=== PATIENT | female | born 1930 | race Caucasian/White ===

== ENCOUNTER 2018-11-16 13:42 | Inpatient (IN) ==
[2018-11-16] MEDS ORDERED: Acetaminophen 325 MG TABLET PO PRN (23:10)
[2018-11-16] MEDS ORDERED: cloNIDine HCl 0.1 MG TABLET PO PRN (23:13)
[2018-11-16] MEDS ORDERED: Melatonin 3 MG TABLET PO PRN (23:16)
[2018-11-16] MEDS ORDERED: *HR* HYDROcodone/Acet 5/325 mg TABLET PO PRN (23:18)
[2018-11-17] MEDS: Ondansetron ODT 4 MG TAB.RAPDIS SL PRN ×3 (03:58→16:55)
[2018-11-17 05:26] LABS: Basophils % 0.1 %; Eosinophils % 0.2 %; Hematocrit 23.5 % (35.3-44.9); Hemoglobin 7.8 g/dL (11.5-15.4); Immature Granulocytes % 0.6 % (0-4); Lymphocytes # 1.3 K/mcL (0.6-4.6); Lymphocytes % 9.8 %; Mean Corpuscular HGB Conc 33.2 g/dL (31.6-35.5); Mean Corpuscular Hemoglobin 27.6 pg (28.0-33.3); Mean Platelet Volume 10.5 fL (9.4-12.4); Monocytes # 1.4 K/mcL (0.0-1.3); Monocytes % 10.2 %; Neutrophils # 10.7 K/mcL (1.6-8.9); Platelet Count 239 K/mcL (140-400); Red Blood Count 2.83 M/mcL (3.82-4.97); Red Cell Distribution Width 14.6 % (11.5-14.5); Segmented Neutrophils % 79.1 %; White Blood Count 13.5 K/mcL (4.3-11.1)
[2018-11-17 05:42] LABS: Bilirubin,Total 0.7 mg/dL (0.3-1.0); Calcium 8.1 mg/dL (8.6-10.3); Potassium 4.6 mEq/L (3.5-5.1)
[2018-11-17] MEDS: Levothyroxine 25 MCG TABLET PO SCH (06:34)
[2018-11-17] MEDS: Insulin LISPRO 300 UNITS/3 ML VIAL SQ SCH ×3 (07:40→16:49)
[2018-11-17] MEDS: Loratadine 10 MG TABLET PO SCH (08:22)
[2018-11-17] MEDS: *HR* Glimepiride 4 MG TABLET PO SCH (08:22)
[2018-11-17] MEDS: Aspirin Enteric Coated 325 MG Tablet PO SCH (08:22)
[2018-11-17] MEDS: Metoprolol XL (24 HR) Succ 50 MG TAB.ER.24H PO SCH (08:22)
[2018-11-17] MEDS ORDERED: Lisinopril 20 MG TABLET PO SCH (09:00)
[2018-11-17] MEDS: Mag Hydrox/Al Hydrox/Simeth 30 ML UDC PO PRN ×2 (09:49→16:55)
[2018-11-17] MEDS ORDERED: *HR* HYDROcodone/Acet 5/325 mg TABLET PO PRN ×2 (09:59→10:00)
--- NOTE | 2018-11-17 10:00 | Internal Med History&Physical ---
Date of Encounter: 11/17/18 Time of Encounter: 09:55 Assessment and Plan (1) Closed left hip fracture Current visit: Yes Status: Acute Patient is an admission from [facility] where she was surgically treated after experiencing a fall at home. Patient had a left hip nailing fracture with surgical incision appearing healthy and dressing dry and intact. Minimal edema noted to the left hip. No ecchymosis. Patient with complaints of moderate pain to left hip. Patient's pain medications are being and reevaluate her due to her history of a allergy to codeine. Therapy evaluation pending Qualifiers: Encounter type: initial encounter Qualified Code(s): S72.002A - Fracture of unspecified part of neck of left femur, initial encounter for closed fracture (2) Hyponatremia Current visit: Yes Status: Acute Patient's serum sodium today was 123. Noted hyponatremia from previous labs taken [place]. We will reevaluate patient's chemistries this afternoon to determine current treatment. Continue to follow serial labs (3) Left humeral fracture Current visit: Yes Status: Acute Patient had experienced a avulsion type fracture to left humerus with a nonsurgical treatment determined per orthopedic surgeon. Arm remains in sling with nonweightbearing status. We will continue to monitor. Patient complains of moderate pain to left arm. Pain medications are being reevaluated as stated Qualifiers: Encounter type: initial encounter Humerus Location: greater tuberosity Fracture type: closed Fracture alignment: nondisplaced Qualified Code(s): S42.255A - Nondisplaced fracture of greater tuberosity of left humerus, initial encounter for closed fracture (4) HTN (hypertension) Current visit: Yes Status: Acute Vital signs stable during her stay. We will continue with current medications Qualifiers: Hypertension type: essential hypertension Qualified Code(s): I10 - Essential (primary) hypertension (5) DM2 (diabetes mellitus, type 2) Current visit: Yes Status: Chronic No acute issues. Patient's glucose about we will controlled with readings less than 150. We will continue to monitor with fingersticks. We will continue with current medications Qualifiers: Diabetes mellitus terminal makeup operator insulin use: without terminal makeup operator use Diabetes mellitus complication status: without complication Qualified Code(s): E11.9 - Type 2 diabetes mellitus without complications (6) Nausea Current visit: Yes Status: Acute Patient has experienced nausea this morning. Patient does have history of codeine allergy and currently has taken [place]. We will reevaluate her pain medications and continue with when necessary Zofran. Internal Medicine - H&P: HPI Chief complaint: Left humeral Fx Admitted From: Hospital to Hospital Transfer Plans for Post Hospital Care: Home History of present illness: Ms. Vasquez is a 87 year old female, who presented to [facility] after experiencing a fall at home and had complaints of left arm and left hip pain. Patient was found to have a avulsion fracture left greater tuberosity of humerus and also a left hip fracture. Patient's left humerus fracture was evaluated and determined to use a nonsurgical approach. Patient has left arm in a sling and remains nonweightbearing. Patient's left hip fracture was surgically treated on 11/15/2018 wtih a IM nailing of left peritrochanteric fracture with a long femoral nail. Patient experienced anemia postoperatively, but otherwise her recovery was uneventful. Noted issues with pain control and nausea postoperatively. Orthopedic surgeon discharged with following recommendations. Continue with touchdown weightbearing on the left lower extremity. As always a dressings are dry and intact she can shower and does not require any incision care. Can start with weightbearing across the shoulder as tolerated utilizing a walker. We will need follow-up with me in about 2-3 weeks. Patient has had complaints of moderate pain to her left humerus fracture site and left hip. Patient states that her pain medications have been effective but she continues to have increasing pain during repositioning or movement. Patient states that her pain medication duration has not been long enough. Patient also said complaints of nausea and nurse reports patient vomited this morning a small amount of emesis. Patient has received Zofran earlier today states minimal effect. She denies any dyspnea or productive cough. Patient states withdrawing medical history has been diabetes and hypothyroidism. Past Med Surg Social Fam HX - Past Medical History Medical history: arthritis, diabetes, hypertension, thyroid disease Psychiatric history: no psych history - Social History Smoking Status: Never smoker Smokeless Tobacco Status: No Alcohol use: none Drug use: none - Family History Son Adopted: [place]: Jules Family Member Ethnicity: Non- Living Status: Still Living Hx Family Cardiac Disorders: No Hx Family Respiratory Disorders: No Hx Family Cancer: No Hx Family GI Disorders: No Hx Family Endocrine Disorder: No Hx Family Neuromuscular Disorders: No Hx Family Neurologic Disorders: No Hx Family HEENT Disorders: No Hx Family Autoimmune Disorders: No Internal Medicine - H&P: Meds Aspirin [Ecotrin] 325 mg PO DAILY 11/13/18 [History] Atorvastatin [Lipitor] 40 mg PO HS 11/13/18 [History] Furosemide [Lasix] 20 mg PO DAILY 11/13/18 [History] Glimepiride [Amaryl] 4 mg PO DAILY 11/13/18 [History] Levothyroxine [Synthroid] 25 mcg PO 0630 11/13/18 [History] Meloxicam [Mobic] 7.5 mg PO DAILY 11/13/18 [History] Metoprolol Succinate [Toprol Xl] 50 mg PO DAILY 11/13/18 [History] Omeprazole [PriLOSEC] 20 mg PO DAILY 11/13/18 [History] Ramipril [Altace] 10 mg PO DAILY 11/13/18 [History] Triamterene/HCTZ 37.5/25mg [Dyazide] 1 each PO DAILY 11/13/18 [History] Loratadine [Claritin] 1 tab PO DAILY 11/14/18 [History] Potassium Chloride [K-Tab ER] 8 meq PO DAILY 11/14/18 [History] HYDROcodone/Acet 5/325 mg [[place] 5-325 mg] 1 tab PO Q4H PRN 11/16/18 [History] Allergy/AdvReac Type Severity Reaction Status Date / Time celecoxib [From Celebrex] Allergy Hives Verified 11/14/18 10:49 codeine Allergy Hives Verified 11/14/18 10:49 All Systems PM: A 10-system review of systems was performed and is negative for pertinent findings except as documented above in the HPI. - Constitutional Constitutional: as per HPI, no chills, no fever(s), no night sweats - EENT Eyes: as per HPI, no change in vision, no discharge, no pain, no photophobia Ears: as per HPI, no ear discharge, no ear pain, no tinnitus Nose, mouth and throat: as per HPI, no dysphagia, no nasal discharge, no neck pain, no sore throat - Breasts Breasts: as per HPI - Cardiovascular Cardiovascular ROS IM: as per HPI, no chest pain, no diaphoresis, no dyspnea, no lightheadedness, no palpitations, no syncope - Respiratory Respiratory: as per HPI, no cough, no dyspnea, no wheezing, no excessive phlegm production - Gastrointestinal Gastrointestinal: as per HPI, no abdominal pain, no diarrhea, no hematemesis, no hematochezia, no melena, no nausea, no vomiting - Genitourinary Genitourinary: as per HPI, no change in urinary stream, no dysuria, no flank pain, no hematuria - Musculoskeletal Musculoskeletal ROS IM: as per HPI, no numbness, no tingling - Integumentary Integumentary IM: as per HPI, no rash, no unusual bruising - Neurological Neurological ROS: as per HPI, no confusion, no convulsions, no focal weakness, no numbness, no tingling, no tremor(s) - Psychiatric Psychiatric: as per HPI - Endocrine Endocrine IM: as per HPI - Hematologic/Lymphatic Hematologic/Lymphatic: no easy bruising - Constitutional Vitals: Temp Pulse Resp BP Pulse Ox 98.2 F 85 17 131/55 93 11/17/18 09:45 11/17/18 09:45 11/17/18 09:45 11/17/18 09:45 11/17/18 09:45 General appearance: Present: A&O X 3, pleasant - Head Head exam: Present: atraumatic, normocephalic - Eye Eye exam: Present: PERRL, conjuntiva pink, sclera anicteric Pupils: Present: PERRL - Neck Neck exam general surgery: Present: supple, trachea midline. Absent: lymphadenopathy - Respiratory Respiratory exam: Present: decreased breath sounds, CTAB. Absent: accessory muscle use, rales, rhonchi, wheezes - Cardiovascular Cardiovascular exam: Present: RRR, +S1, +S2. Absent: diastolic murmur, gallop, rubs, systolic murmur - GI/Abdominal GI/Abdominal exam: Present: normal bowel sounds, soft, no peritoneal signs. Absent: distended, tenderness - Extremities Exam Extremities exam: Present: normal capillary refill, normal inspection, warm, radial pulses palpable and symmetrical. Absent: calf tenderness, cyanotic, pedal edema Additional comments: Patient with tenderness to left upper arm. Left arm remains slightly with nonweightbearing. Distal CV checks normal. Left hip surgical dressing remains dry and intact. Small surgical dressing to the left lateral thigh also is dry and intact. Slight edema noted to left hip. No ecchymosis or erythema noted. - Neurological Exam Neurological exam: Present: CN II-XII intact, oriented X3, no focal deficits. Absent: pronater drift, facial droop, speech deficit - Skin Skin exam: Present: dry, intact Internal Med - H&P Results - Labs CBC & Chem 7: 11/17/18 05:04 11/17/18 05:04 Labs: Short CBC 11/17/18 Range/Units 05:04 WBC 13.5 H (4.3-11.1) K/mcL Hgb 7.8 L (11.5-15.4) g/dL Hct 23.5 L (35.3-44.9) % Plt Count 239 (140-400) K/mcL Neutrophils # 10.7 H (1.6-8.9) K/mcL BMP 11/17/18 05:04 Sodium 123 L Potassium 4.6 Chloride 94 L Carbon Dioxide 22 L BUN 47 H Creatinine 1.35 H Glucose 130 H Calcium 8.1 L Liver Function 11/17/18 Range/Units 05:04 Total Bilirubin 0.7 (0.3-1.0) mg/dL AST 21 (13-39) Units/L ALT 10 (7-52) Units/L Alkaline Phosphatase 70 (34-104) Units/L Albumin 3.0 L (3.5-5.7) g/dL
[2018-11-17] MEDS ORDERED: *HR* HYDROmorphone (PF) 1 MG/ML SYRINGE IVP PRN (10:16)
[2018-11-17 11:12] LABS: Calcium 8.2 mg/dL (8.6-10.3); Potassium 4.6 mEq/L (3.5-5.1)
[2018-11-17] MEDS: 0.9 % Sodium Chloride 1,000 ML IVC SCH ×2 (12:41→21:05)
[2018-11-17] MEDS: *HR* Enoxaparin 30 MG/0.3 ML SYRINGE SQ SCH (16:50)
[2018-11-17] MEDS: *HR* OxyCODONE Immed Rel 5 MG TABLET PO PRN (16:55)
[2018-11-17] MEDS ORDERED: *HR* Enoxaparin 40 MG/0.4 ML SYRINGE SQ SCH (18:00)
[2018-11-17] MEDS ORDERED: Insulin LISPRO 300 UNITS/3 ML VIAL SQ SCH (21:00)
[2018-11-18] MEDS: *HR* OxyCODONE Immed Rel 5 MG TABLET PO PRN ×2 (01:19→09:41)
[2018-11-18] MEDS: Levothyroxine 25 MCG TABLET PO SCH (05:13)
[2018-11-18] MEDS: 0.9 % Sodium Chloride 1,000 ML IVC SCH ×2 (05:14→13:24)
[2018-11-18 06:47] LABS: Calcium 7.8 mg/dL (8.6-10.3); Potassium 3.9 mEq/L (3.5-5.1)
[2018-11-18] MEDS: Insulin LISPRO 300 UNITS/3 ML VIAL SQ SCH ×3 (07:54→16:28)
[2018-11-18 09:14] LABS: Bilirubin,Urine Negative (Negative); Blood,Urine Large (Negative); Clarity,Urine Clear (Clear); Color,Urine Yellow (Yellow); Glucose,Urine (UA) Normal (Normal); Ketones,Urine Negative (Negative); Leukocyte Esterase,Urine Moderate (Negative); Nitrite,Urine Negative (Negative); Protein,Urine 30 mg/dL (Neg-Trace); Urobilinogen,Urine Normal (Normal)
[2018-11-18] MEDS: Aspirin Enteric Coated 325 MG Tablet PO SCH (09:32)
[2018-11-18] MEDS: Loratadine 10 MG TABLET PO SCH (09:32)
[2018-11-18] MEDS: Metoprolol XL (24 HR) Succ 50 MG TAB.ER.24H PO SCH (09:32)
[2018-11-18] MEDS: Ondansetron ODT 4 MG TAB.RAPDIS SL PRN (09:32)
[2018-11-18] MEDS: *HR* Glimepiride 4 MG TABLET PO SCH (09:32)
[2018-11-18 09:39] LABS: Bacteria,Urine Moderate per hpf (None-Few); Hyaline Casts,Urine Few per lpf (None-Few); Mucus,Urine Few (Few); RBC,Urine 50-100 per hpf (0-3); Squamous Epithelial Cell,Urine Moderate per lpf (None-Few); WBC,Urine 50-100 per hpf (0-3)
[2018-11-18 09:47] VITALS: BP 120/64
[2018-11-18] MEDS ORDERED: *HR* EPINEPHrine 100 MCG/10 ML SYRINGE IVP ONE (10:00)
[2018-11-18] MEDS ORDERED: *HR* Succinylcholine 200 MG/10 ML VIAL IVP ONE (10:00)
[2018-11-18] MEDS ORDERED: *HR* Dextrose 50 % in Water (Syg) 50 ML SYRINGE ONE ×2 (10:00→17:10)
[2018-11-18] MEDS ORDERED: *HR* Midazolam HCl 2 MG/2 ML VIAL ONE ×2 (10:00→18:56)
[2018-11-18] MEDS ORDERED: 0.9 % Sodium Chloride 1,000 ML IV.SOLN ONE (10:00)
[2018-11-18] MEDS ORDERED: Fluconazole 100 MG TABLET PO SCH (14:30)
--- NOTE | 2018-11-18 15:16 | Internal Med Progress Note ---
Date of Encounter: 11/19/18 Time of Encounter: 13:40 - Subjective Interval history: Assessment and Plan # Closed left hip fracture Current visit: Yes Status: Acute Patient is an admission from [facility] where she was surgically treated after experiencing a fall at home. Patient had a left hip nailing fracture with surgical incision appearing healthy and dressing dry and intact. Minimal edema noted to the left hip. No ecchymosis. Patient with complaints of moderate pain to left hip. Pt not wanting to move to go to bathroom encouraged. Bladder scan showed retention but then pt was able to urinate with encouragement and assist pt UA pos for uti culture pend will start IV zosyn and will give po diflucan as pt says gets yeast infection anytime given antbx pt is afebrile Qualifiers: Encounter type: initial encounter Qualified Code(s): S72.002A - Fracture of unspecified part of neck of left femur, initial encounter for closed fracture (#) Hyponatremia Current visit: Yes Status: Acute Patient's serum sodium thas been low - Noted hyponatremia from previous labs taken [place]. continue to monitor patient's chemistries and give IV NS as needed. Pt has had poor po intake encouraged po intake (#) Left humeral fracture Current visit: Yes Status: Acute Patient had experienced a avulsion type fracture to left humerus with a nonsurgical treatment determined per orthopedic surgeon. Arm remains in sling with nonweightbearing status. We will continue to monitor. Patient complains of moderate pain to left arm. Pain medications are being reevaluated as stated Qualifiers: Encounter type: initial encounter Humerus Location: greater tuberosity Fracture type: closed Fracture alignment: nondisplaced Qualified Code(s): S42.255A - Nondisplaced fracture of greater tuberosity of left humerus, initial encounter for closed fracture (# HTN (hypertension) Current visit: Yes Status: Acute Vital signs stable during her stay. We will continue with current medications Qualifiers: Hypertension type: essential hypertension Qualified Code(s): I10 - Essential (primary) hypertension (#) DM2 (diabetes mellitus, type 2) Current visit: Yes Status: Chronic No acute issues. Patient's glucose about we will controlled with readings less than 150. We will continue to monitor with fingersticks. We will continue with current medications except not use amaryl as pt has poor po intake blood sugar currently stable not nauseated no vomiting Qualifiers: Diabetes mellitus long term care social worker insulin use: without long term care social worker use Diabetes mellitus complication status: without complication Qualified Code(s): E11.9 - Type 2 diabetes mellitus without complication # ) Anemia Pt has been anemic no active bleeding and last hb stable. will check retic count and iron and b12 and replace as needed will continue to monitor her blood counts Interval Hx Chief complaint: Left humeral Fx repaired Admitted From: Hospital to Hospital Transfer Overnight pt has been stable. No acute events but having problems with mobility due to pain in hip. No chest pain No Abd pain. Pt is not wanting to urinate regularly due to hip pain when she does go, discussed with pt. Pt had bladder scan today that showed about 900 CC urine. She did have urinary retention prior to transfer after hip fracture. Pt was encourged to urinate and was able to void about 600 cc. Urine was sent that was pos for UTI. Ms. Vasquez is a 87 year old female, who presented to [facility] after experiencing a fall at home and had complaints of left arm and left hip pain. Gerry carroll was found to have a avulsion fracture left greater tuberosity of humerus and also a left hip fracture. Patient's left humerus fracture was evaluated and determined to use a nonsurgical approach. Patient has left arm in a sling and remains nonweightbearing. Patient's left hip fracture was surgically treated on 11/15/2018 wtih a IM nailing of left peritrochanteric fracture with a long femoral nail. Patient experienced anemia postoperatively, but otherwise her recovery was uneventful. Examination: General: elderly WF chronic ill appearing In no apparent distress, alert and oriented 3. Head: Atraumatic and normocephalic. Eyes: Extraocular muscles are intact, pupils equal round and reactive to light and accommodation. Sclerae anicteric. Ears: External ears are normal to inspection and hearing is grossly normal. Nose: Patent without lesion noted. Mouth: No intraoral lesions seen. She is edentulous. Neck: Supple with trachea midline. There is no thyromegaly or adenopathy and carotids are 2+ without bruit heard. Respiratory: No use of accessory muscles. Lungs are clear throughout. Normal airflow. Cardiovascular: Regular rate and rhythm without murmur appreciated. Abdomen: Bowel sounds are normal. No masses or tenderness. Obese and therefore difficult to palpate deeply. Extremities: No cyanosis or clubbing. She has difficulty with moving her left lower extremity. Neurological: A and O 3. Cranial nerves II through XII are intact. No focal deficits . Skin: Warm and non-diaphoretic with no lesions noted. - Constitutional Vitals: Temp Pulse Resp BP Pulse Ox 98 F 84 17 120/64 96 11/18/18 09:46 11/18/18 09:46 11/18/18 09:46 11/18/18 09:46 11/18/18 09:46 General appearance: Present: A&O X 3, pleasant Internal Medicine: Result - Labs CBC & Chem 7: 11/18/18 17:25 11/18/18 17:25 Labs: BMP 11/18/18 06:20 Sodium 128 L Potassium 3.9 Chloride 98 Carbon Dioxide 21 L BUN 51 H Creatinine 1.14 Glucose 47 L Calcium 7.8 L Urine 11/18/18 Range/Units 07:53 Urine Color Yellow (Yellow) Urine Clarity Clear (Clear) Urine pH 6.0 (5.0-8.0) pH Units Ur Specific [place] 1.020 (1.010-1.025) Urine Protein 30 H (Neg-Trace) mg/dL Urine Glucose (UA) Normal (Normal) mg/dL Consult Discharge Plan - Plan Referrals: Khanh Brooks, SECRETARY OF STATE [Primary Care Provider] -
[2018-11-18] MEDS ORDERED: Piperacillin/Tazobactam 3.375 GM in 0.9 % Sodium Chloride Mini Bag 100 ML IVPB SCH (16:00)
[2018-11-18 17:34] LABS: ABG Base Excess -12 mEq/L (-2 to 3); ABG HCO3 14 mEq/L (21-27); ABG Oxygen Saturation 99 % (95-98); ABG PCO2 28 mmHg (35-45); ABG PH 7.29 pH Units (7.32-7.45); ABG PO2 128 mmHg (85-104); ABG TCO2 14 mEq/L (20-26)
[2018-11-18 17:34] LABS: Basophils % 0.1 %; Eosinophils % 0.3 %; Hematocrit 22.3 % (35.3-44.9); Hemoglobin 7.1 g/dL (11.5-15.4); Immature Granulocytes % 1.3 % (0-4); Lymphocytes # 2.6 K/mcL (0.6-4.6); Lymphocytes % 23.4 %; Mean Corpuscular HGB Conc 31.8 g/dL (31.6-35.5); Mean Corpuscular Hemoglobin 27.5 pg (28.0-33.3); Mean Corpuscular Volume 86.4 fL (83.0-100.0); Mean Platelet Volume 10.2 fL (9.4-12.4); Monocytes # 0.9 K/mcL (0.0-1.3); Monocytes % 8.4 %; Nucleated Red Blood Cells 0.2 /100 WBC (0); Platelet Count 215 K/mcL (140-400); Red Blood Count 2.58 M/mcL (3.82-4.97); Segmented Neutrophils % 66.5 %; White Blood Count 11.2 K/mcL (4.3-11.1)
[2018-11-18 17:36] LABS: Neutrophils # 7.5 K/mcL (1.6-8.9)
[2018-11-18 17:43] LABS: INR 1.1
[2018-11-18 17:46] LABS: Activated Partial Thrombo Time 38.2 Seconds (26.0-36.0)
[2018-11-18 18:00] LABS: Albumin 2.4 g/dL (3.5-5.7); Albumin/Globulin Ratio 0.9 (1.1-2.2); Bilirubin,Total 0.7 mg/dL (0.3-1.0); Calcium 7.5 mg/dL (8.6-10.3); Globulin 2.7 g/dL (2.4-3.5); Potassium 3.9 mEq/L (3.5-5.1); Total Protein 5.1 g/dL (6.4-8.9); Troponin I 0.16 ng/mL (< 0.04)
[2018-11-18 18:19] LABS: Magnesium 2.5 mg/dL (1.6-2.6)
[2018-11-18] MEDS ORDERED: *HR* Midazolam HCl 2 MG/2 ML VIAL IVP ONE (19:25)
[2018-11-18] MEDS ORDERED: *HR* Midazolam HCl 5 MG/5 ML VIAL IVP ONE (19:29)
--- NOTE | 2018-11-18 19:32 | Event Note ---
Date of Encounter: 11/18/18 Time of Encounter: 17:10 I was called just after 5 PM to room 114 on the floor of the medical guy at [facility]. I arrived to find Ms. Vasquez unresponsive. She did not exhibit a pulse was breathing normally and CPR was immediately started. Blood sugar was 48 1 amp of D50 was pushed. Blood sugar approximately 30 minutes later was 79. Heart monitor was applied and after 2 minutes rhythm showed V. fib. Defibrillation was delivered once at 300 J CPR was immediately started for 2 minutes and 1 mg of epinephrine was given IV. At that rhythm check or denies rhythm was appreciated. I felt a femoral pulse and a blood pressure showed systolic 181. EKG was obtained at that point which showed A. fib with a rate of 171. At that point 20 mg of Cardizem was given. Even though [place] was achieved her mental status was not alert and she was vomiting therefore intubation was thought necessary. A #7.5 tube was used after 20 mg of etomidate was delivered. She was suctioned for a large amount of vomitus. Cords were visualized after suction with a 2 Mac blade. ET tube was visualized going through the cords. Color change was seen and exhibited yellow. Breath sounds increased on the right hurt on the left but less so. No epigastric sounds with bagging. Saturations however remained low in the 70s. At this point it was thought most prudent to get her down to the emergency department for added experienced personnel and equipment. She arrived in bed 5 emergency department. End tidal CO2 was applied and showed an tidal 25-29 with good waveform. Chest x-ray showed right mainstem intubation and this was withdrawn approximately 3 cm and resecured. oxygen saturations 100%. A closer look at the EKG did demonstrate ST elevations to millimeters V3 1.5 mm before. Repeat EKG shortly after arriving here in the emergency department exhibited sinus rhythm. ST elevations have resolved. Rate is 93. Q waves persist in lead 3. Orogastric tube was placed was a fair amount of GI return. After intubation and the 20 mg of Cardizem were given her blood pressure dropped precipitously to systolic of 73. Therefore no drip for the Cardizem was started. IV fluids were given. After 1 L she was registering a systolic blood pressure from 92-102. Another liter was started at that point close to the time that she was transferred. Because of the initial ST elevation I did speak with the on-call waste management engineer to presented the case to him. He recommended ICU transfer to [place] as she just had hip surgery there a few days ago. He also recommended repeat EKG on her arrival. I then spoke with the covering hospitalist at [facility] and presented the case. He accepted transfer. Ms. Vasquez is in stable condition as she leaves [facility]. Critical care time 2 hours. Versed drip was ordered but had not arrived at the time of transfer. She did receive 34 mg boluses of Versed for sedation. Also notable is a drop in hemoglobin over the last 3 days from 10.3 to currently 7.1. Reportedly she was guaiac positive. Chart review does not show that she is had any recent scopes. I did not give her aspirin even though her troponin is 0.16 (she did receive CPR and defibrillation). I did order 2 units of packed red blood cells but they had not arrived prior to transfer. All orders are verbal as she is not able to be arrived as an ER patient.
[2018-11-18] MEDS: *HR* Enoxaparin 30 MG/0.3 ML SYRINGE SQ SCH (19:36)
[2018-11-18 20:57] LABS: ABG Base Excess -5 mEq/L (-2 to 3); ABG HCO3 19 mEq/L (21-27); ABG Oxygen Saturation 100 % (95-98); ABG PCO2 32 mmHg (35-45); ABG PH 7.39 pH Units (7.32-7.45); ABG PO2 190 mmHg (85-104); ABG TCO2 20 mEq/L (20-26); Blood Gas Modality ASSIST CONTROL; Blood Gas PEEP 5 cm H2O; Blood Gas VT 450 cc
--- NOTE | 2018-11-19 17:27 | Discharge Summary ---
Orders not resulted at time of discharge: Pending orders 11/18/18 07:53 Culture,Urine [RM] Routine Date of Encounter: 11/18/18 Time of Encounter: 19:50 Hospital course: Ms. Vasquez is a 87 year old female who is transferred to higher level of care after code johann was called and pt was resuscitated and intubated. Dr Montoya from ED responded and led the code ( please see his note ) Pt was talking with family and in no distress when she had sudden LOC . Pt had no precipitating factors, had no complaints and was acting as her baseline. When code was called was found to be in V fib arrest. ED doctor responded to code and ACLS protocol was promptly initiated and pt was brought back to [facility]. Troponin was elevated and cardiology was contacted. PT was transferred intubated and sedated for further evaluation and treatment. Hospital Course : Admit on 11/17/18 from [place] for rehab. Issues: # Closed left hip fracture Current visit: Yes Status: Acute Patient is an admission 11/17 from [facility] where she was surgically treated after experiencing a fall at home. Patient had a left hip nailing 11/15 after fracture . Patient was found to have a avulsion fracture left greater tuberosity of humerus and also a left hip fracture. Patient's left humerus fracture was evaluated and determined to use a nonsurgical approach. Patient has left arm in a sling and remains nonweightbearing. Patient's left hip fracture was surgically treated on 11/15/2018 wtih a IM nailing of left peritrochanteric fracture with a long femoral nail. Patient experienced anemia postoperatively . No ecchymosis. Patient with complaints of moderate pain to left hip. Pt not wanting to move to go to bathroom encouraged. Bladder scan showed retention but then pt was able to urinate with encouragement and assist pt UA pos for uti culture pending did start IV zosyn pt has been afebrile Qualifiers: Encounter type: initial encounter Qualified Code(s): S72.002A - Fracture of unspecified part of neck of left femur, initial encounter for closed fracture (#) Hyponatremia Current visit: Yes Status: Acute Patient's serum sodium thas been chronic low - Noted hyponatremia from previous labs taken [place]. continue to monitor patient's chemistries and give IV NS as needed. Pt has had poor po intake encouraged po intake (#) Left humeral fracture Current visit: Yes Status: Acute Patient had experienced a avulsion type fracture to left humerus with a nonsurgical treatment determined per orthopedic surgeon. Arm remains in sling with nonweightbearing status. We will continue to monitor. Encounter type: initial encounter Humerus Location: greater tuberosity Fracture type: closed Fracture alignment: nondisplaced Qualified Code(s): S42.255A - Nondisplaced fracture of greater tuberosity of left humerus, initial encounter for closed fracture (# HTN (hypertension) Current visit: Yes Status: Acute Vital signs stable during her stay. We will continue with current medications Qualifiers: Hypertension type: essential hypertension Qualified Code(s): I10 - Essential (primary) hypertension (#) DM2 (diabetes mellitus, type 2) Current visit: Yes Status: Chronic No acute issues. We will continue with current medications except not use amaryl as pt has poor po intake blood sugar currently stable not nauseated no vomiting Qualifiers: Diabetes mellitus halfway insulin use: without halfway use Diabetes mellitus complication status: without complication Qualified Code(s): E11.9 - Type 2 diabetes mellitus without complication # ) Anemia Pt has been anemic no active bleeding and last hb stable. plan will check retic count and iron and b12 and replace as needed will continue to monitor her blood counts - Time Spent with Patient Total time spent providing and/or coordinating discharge services: - Discharge Medications Prescriptions: No Action Loratadine [Claritin] 1 tab PO DAILY Potassium Chloride [K-Tab ER] 8 meq PO DAILY Omeprazole [PriLOSEC] 20 mg PO DAILY Meloxicam [Mobic] 7.5 mg PO DAILY Metoprolol Succinate [Toprol Xl] 50 mg PO DAILY Glimepiride [Amaryl] 4 mg PO DAILY Ramipril [Altace] 10 mg PO DAILY Triamterene/HCTZ 37.5/25mg [Dyazide] 1 tab PO DAILY Atorvastatin [Lipitor] 40 mg PO HS Aspirin [Ecotrin] 325 mg PO DAILY Levothyroxine [Synthroid] 25 mcg PO 0630 Furosemide [Lasix] 20 mg PO DAILY HYDROcodone/Acet 5/325 mg [[place] 5-325 mg] 1 tab PO Q4H PRN PRN Reason: Moderate Pain Home Medications: Aspirin [Ecotrin] 325 mg PO DAILY 11/13/18 [History] Atorvastatin [Lipitor] 40 mg PO HS 11/13/18 [History] Furosemide [Lasix] 20 mg PO DAILY 11/13/18 [History] Glimepiride [Amaryl] 4 mg PO DAILY 11/13/18 [History] Levothyroxine [Synthroid] 25 mcg PO 0630 11/13/18 [History] Meloxicam [Mobic] 7.5 mg PO DAILY 11/13/18 [History] Metoprolol Succinate [Toprol Xl] 50 mg PO DAILY 11/13/18 [History] Omeprazole [PriLOSEC] 20 mg PO DAILY 11/13/18 [History] Ramipril [Altace] 10 mg PO DAILY 11/13/18 [History] Triamterene/HCTZ 37.5/25mg [Dyazide] 1 tab PO DAILY 11/13/18 [History] Loratadine [Claritin] 1 tab PO DAILY 11/14/18 [History] Potassium Chloride [K-Tab ER] 8 meq PO DAILY 11/14/18 [History] HYDROcodone/Acet 5/325 mg [[place] 5-325 mg] 1 tab PO Q4H PRN 11/16/18 [History] Allergies/Adverse Reactions: Allergy/AdvReac Type Severity Reaction Status Date / Time celecoxib [From Celebrex] Allergy Hives Verified 11/14/18 10:49 codeine Allergy Hives Verified 11/14/18 10:49 Date of admission: 11/16/18 19:40 Primary care physician: Khanh Brooks CNP Consults: 11/16/18 23:22 Consult to Occupational Therapy [CONS] Routine Comment: Evaluate and Treat Reason for Consult: Evaluate and Treat Does patient have active BEDREST order?: No Is patient medically & hemodynamically stable?: Yes Patient assessed for mobility or mobilized this visit?: No Consult to Physical Therapy [CONS] Routine Comment: Evaluate and Treat Reason for Consult: Evaluate and Treat Does patient have active BEDREST order?: No Is patient medically & hemodynamically stable?: Yes Patient assessed for mobility or mobilized this visit?: Yes Consult to Recreational Therapy [CONS] Routine Comment: Evaluate and Treat 11/17/18 01:32 Consult to Nutrition [CONS] Routine Comment: Consulting Provider: NUTRITION Reason for Dietary Consult: MST Score - Constitutional Vitals: Temp Pulse Resp BP Pulse Ox 97.7 F 84 17 120/64 100 11/18/18 16:27 11/18/18 09:46 11/18/18 09:46 11/18/18 09:46 11/19/18 11:55 - Patient Status Disposition: Transfer Critical Access Hosp Condition: Serious - Discharge Instructions Follow Up With: Khanh Brooks, RN RESEARCH [Primary Care Provider] -
--- NOTE | 2018-11-24 08:55 | Electrocardiograph Report ---
[address] [place], [place] [address] Test Date: 2018-11-18 Pat Name: Marlene Vasquez Department: 2001 Room: 114 Gender: F Bench Grinder: Tb : 1930 Requested By: Diego Mendoza Order Number: [id number] Reading MD: Kevin Olson Measurements Intervals [place] Rate: 171 P: MT: 0 QRS: -13 QRSD: 92 T: -53 QT: 246 QTc: 339 Interpretive Statements ATRIAL FIBRILLATION WITH RAPID VENTRICULAR RESPONSE POSSIBLE INFERIOR MYOCARDIAL INFARCTION [40+ ms Q WAVE AND/OR ST/T ABNORMALITY IN II/aVF], OF INDETERMINATE AGE ANTEROSEPTAL ST-T CHANGES, CONSIDER ISCHEMIA OR MYOCARIDAL INJURY Electronically Signed On 11-24-2018 8:53:15 EDT by Kevin Olson
== END 2018-11-18 19:34 | disposition critical access hospital (66) | DRG 559 ==
LOC: INPGRE 19:40

== ENCOUNTER 2018-11-24 10:47 | Inpatient (IN) ==
[2018-11-25] MEDS ORDERED: *HR* Digoxin 0.25 MG TABLET PO ONE (00:01)
[2018-11-25] MEDS: *HR* HYDROcodone/Acet 5/325 mg TABLET PO PRN ×3 (00:53→20:36)
[2018-11-25] MEDS: Sucralfate 1 GM TABLET PO SCH ×4 (06:23→20:35)
[2018-11-25] MEDS: Levothyroxine 25 MCG TABLET PO SCH (06:23)
[2018-11-25 06:26] LABS: Basophils % 0.1 %; Eosinophils # 0.1 K/mcL (0.0-0.6); Hematocrit 26.1 % (35.3-44.9); Hemoglobin 8.5 g/dL (11.5-15.4); Immature Granulocytes % 0.8 % (0-4); Lymphocytes # 1.7 K/mcL (0.6-4.6); Lymphocytes % 14.5 %; Mean Corpuscular HGB Conc 32.6 g/dL (31.6-35.5); Mean Corpuscular Hemoglobin 28.1 pg (28.0-33.3); Mean Corpuscular Volume 86.1 fL (83.0-100.0); Mean Platelet Volume 9.6 fL (9.4-12.4); Monocytes # 0.7 K/mcL (0.0-1.3); Platelet Count 278 K/mcL (140-400); Red Blood Count 3.03 M/mcL (3.82-4.97); Red Cell Distribution Width 16.3 % (11.5-14.5); Segmented Neutrophils % 77.6 %; White Blood Count 11.6 K/mcL (4.3-11.1)
[2018-11-25 06:44] LABS: BUN/Creatinine Ratio 22 (6-26); Blood Urea Nitrogen 19 mg/dL (8-23); Calcium 8.4 mg/dL (8.6-10.3); Carbon Dioxide 22 mEq/L (23-29); Chloride 103 mEq/L (98-107); Glucose 114 mg/dL (70-105); Osmolality,Calculated 279 (280-300); Potassium 3.3 mEq/L (3.5-5.1); Sodium 133 mEq/L (136-145); eGFR For African Americans > 60 (> 60); eGFR For Non-African Americans > 60 (> 60)
[2018-11-25] MEDS: *HR* Enoxaparin 100 MG/ML SYRINGE SQ SCH ×2 (09:01→20:35)
[2018-11-25] MEDS: Aspirin 81 MG TAB.CHEW PO SCH (09:02)
[2018-11-25] MEDS: Lisinopril 20 MG TABLET PO SCH (09:02)
[2018-11-25] MEDS: Metoprolol XL (24 HR) Succ 50 MG TAB.ER.24H PO SCH (09:03)
[2018-11-25] MEDS: *HR* Digoxin 0.125 MG TABLET PO SCH (09:03)
[2018-11-25] MEDS: Furosemide 20 MG TABLET PO SCH (09:03)
[2018-11-25] MEDS: amLODIPine 5 MG TABLET PO SCH (09:03)
--- NOTE | 2018-11-25 12:08 | Internal Med History&Physical ---
Date of Encounter: 11/25/18 Time of Encounter: 11:20 Assessment and Plan (1) Closed left hip fracture Current visit: Yes Status: Acute PT is here for swing bed rehab for left hip fracture and left humerus fracture sustained after fall . She is post nailing repair of left hip. PT is not to be wt bearing and she is 3 person assist. she has recent V fib arrest and NSTEMI. She does not appear to have cardiac clearance for rehab. Would obtain this prior to initiating physical therapy. Will maintain pt on telemetry for now. Will monitor daily wt and i/o. Will replace K and monitor lytes. Will add digoxin to help with a fib rate control and continue beta sera and 81 mg asa and lipitor. She remains anemic. She had previous GI bleed and is now on lovenox for new R arm DVT. Will need to follow her blood count closely and transfuse if 7 or under and continue po carafate and ppi. She will need speech eval of swallowing as she still seems to have difficulty with puree diet and is at risk of malnutrition. She has DM but should not use po amaryl at this time due to risk of hypoglycemia. She has hx of htn and is on norvasc and ramipril. Qualifiers: Encounter type: subsequent encounter Fracture healing: with delayed healing Qualified Code(s): S72.002G - Fracture of unspecified part of neck of left femur, subsequent encounter for closed fracture with delayed healing (2) DVT (deep venous thrombosis) Current visit: Yes Status: Acute This is new. Pt was placed on therapeutic lovenox at 90 SQ bid. Will need close monitoring due to recent GI bleed and anemia Qualifiers: DVT location: upper extremity Affected thrombotic vein of extremity: brachial Chronicity: acute Laterality: right Qualified Code(s): I82.621 - Acute embolism and thrombosis of deep veins of right upper extremity (3) Left humeral fracture Current visit: No Status: Acute see above Qualifiers: Encounter type: subsequent encounter Humerus Location: greater tuberosity Fracture type: closed Fracture alignment: nondisplaced Fracture healing: with delayed healing Qualified Code(s): S42.255G - Nondisplaced fracture of greater tuberosity of left humerus, subsequent encounter for fracture with delayed healing Internal Medicine - H&P: HPI Chief complaint: NSTEMI, recent v fib arrest,pneumonia, fractures, GI bleed, RUE DVT, Admitted From: Intrahospital Transfer (admit authorized and accepted by Dr Kayleigh Mendoza) History of present illness: Ms. Vasquez is a 87 year old female with recent 11/18/18 NSTEMI and V FIB cardio pulmonary arrest, acute respiratory failure and intubation, transfer to [facility]. She was extubated and weaned to room air. She was accepted back to [place] for swing bed by Dr Kayleigh Mendoza. I am covering for Dr Mendoza today. Pt denies CP and she does have baseline sob, she had a recent aspiration pneumonia. She still has some productive cough but sputum no longer discolored. Pt finished course of Zosyn. Cardiology note of Dr Jairo Rose on 11/21/18 from [place] states pt had NSTEMI but refused cardiac cath, and that pt is not a candidate for cardiac rehab. Pt was on amiodarone drip then, and is not currently on po amiodarone as cardiology advised to use beta sera. She did have cardiac echo that showed she was 60% EF. She has anemia, and current hb is over 8. Her last blood transfusion was 2 units given Nov 19. She has hx of GI bleed on previous [place] admission that was cauterized. She was previously at [place] for rehab after fall and multiple fractures. She had Left HIP and Left Humerus fracture. She had nailing of left hip. She was in rehab here at [place] when she had the cardiac arrest. She is not to weight bear and she is a 3 person assist. She has new Right Arm DVT. She was started on Lovenox therapeutic for this on Nov 24. She had an IJ at [place] that was removed. She has baseline of atrial fib and HTN, and her rate is currently stable but tends to sometimes run elevated. She has Hypokalemia and is on daily po replacement but K is still low. She has urinary retention. She has dysphagia and eval at [place] indicates she should be on puree diet with thin liquid She has hx of DM but is not eating much. She is hard of hearing. She is alert and oriented and fatigued. EXAM General pt is chronic ill appearing pale. She is responsive and makes fair eye contact Currently NAD she is wearing a sling on left arm HEENT no lesions noted dry mucosa Neck no bruit no JVD noted Heart currently irreg but no M auscultated Lungs reduced BS both bases Abd full soft BS + no guarding Ext bilat pedal edema soft sling and dressing Past Med Surg Social Fam HX - Past Medical History Medical history: arthritis, coronary artery disease, DVT, diabetes, GI bleed, hypertension, thyroid disease Psychiatric history: no psych history - Past Surgical History Surgical History: orthopedic, other - Social History Smoking Status: Never smoker Smokeless Tobacco Status: No Alcohol use: none Drug use: none - Family History Son Adopted: No Family Member Ethnicity: Non- Living Status: Still Living Hx Family Cardiac Disorders: No Hx Family Respiratory Disorders: No Hx Family Cancer: No Hx Family GI Disorders: No Hx Family Endocrine Disorder: No Hx Family Neuromuscular Disorders: No Hx Family Neurologic Disorders: No Hx Family HEENT Disorders: No Hx Family Autoimmune Disorders: No Internal Medicine - H&P: Meds Atorvastatin [Lipitor] 40 mg PO HS 11/13/18 [History] Glimepiride [Amaryl] 4 mg PO DAILY 11/13/18 [History] Levothyroxine [Synthroid] 25 mcg PO 0630 11/13/18 [History] Metoprolol Succinate [Toprol Xl] 50 mg PO DAILY 11/13/18 [History] Ramipril [Altace] 10 mg PO DAILY 11/13/18 [History] Aspirin 81 mg PO DAILY tab.chew 11/24/18 [Rx] Enoxaparin [Lovenox] 90 mg SQ BID syringe 11/24/18 [Rx] Furosemide [Lasix] 20 mg PO DAILY 30 Days #30 tablet 11/24/18 [Rx] HYDROcodone/Acet 5/325 mg [[place] 5-325 mg] 1 tab PO Q4H PRN 3 Days #12 tablet 11/24/18 [Rx] Pantoprazole Sodium 40 mg PO DAILY 30 Days #30 tablet.dr 11/24/18 [Rx] Potassium Chloride 8 meq PO DAILY 30 Days #30 capsule.er 11/24/18 [Rx] Sucralfate [Carafate] 1 gm PO QIDAC tablet 11/24/18 [Rx] amLODIPine [Norvasc] 10 mg PO DAILY tablet 11/24/18 [Rx] Allergy/AdvReac Type Severity Reaction Status Date / Time celecoxib [From Celebrex] Allergy Hives Verified 11/14/18 10:49 codeine Allergy Hives Verified 11/14/18 10:49 All Systems PM: A 10-system review of systems was performed and is negative for pertinent findings except as documented above in the HPI. - Constitutional Vitals: Temp Pulse Resp BP Pulse Ox 98.4 F 81 16 108/63 96 11/25/18 11:20 11/25/18 11:20 11/25/18 11:20 11/25/18 11:20 11/25/18 11:20 Internal Med - H&P Results - Labs CBC & Chem 7: 11/25/18 06:10 11/25/18 06:10 Labs: Short CBC 11/25/18 Range/Units 06:10 WBC 11.6 H (4.3-11.1) K/mcL Hgb 8.5 L (11.5-15.4) g/dL Hct 26.1 L (35.3-44.9) % Plt Count 278 (140-400) K/mcL Neutrophils # 9.0 H (1.6-8.9) K/mcL BMP 11/25/18 06:10 Sodium 133 L Potassium 3.3 L Chloride 103 Carbon Dioxide 22 L BUN 19 Creatinine 0.86 Glucose 114 H Calcium 8.4 L
[2018-11-25] MEDS ORDERED: Insulin LISPRO 300 UNITS/3 ML VIAL SQ PRN (21:37)
[2018-11-25] MEDS ORDERED: D5% in Water 1,000 ML IVC PRN (22:03)
[2018-11-25] MEDS ORDERED: *HR* Dextrose 50 % in Water (Syg) 50 ML SYRINGE IVP PRN (22:03)
[2018-11-25] MEDS ORDERED: Dextrose Gel 15 GM/37.5 ML TUBE PO PRN ×2 (22:03)
[2018-11-25] MEDS: Insulin LISPRO 300 UNITS/3 ML VIAL SQ SCH (22:38)
[2018-11-25] MEDS: Preparation H Ointment 30 GM TUBE RC PRN (23:06)
[2018-11-26] MEDS: *HR* HYDROcodone/Acet 5/325 mg TABLET PO PRN ×3 (07:07→21:33)
[2018-11-26] MEDS: Levothyroxine 25 MCG TABLET PO SCH (07:07)
[2018-11-26] MEDS: Sucralfate 1 GM TABLET PO SCH ×4 (07:07→21:32)
[2018-11-26] MEDS ORDERED: Insulin LISPRO 300 UNITS/3 ML VIAL SQ PRN (07:30)
[2018-11-26] MEDS: amLODIPine 5 MG TABLET PO SCH (08:30)
[2018-11-26] MEDS: Metoprolol XL (24 HR) Succ 50 MG TAB.ER.24H PO SCH (08:30)
[2018-11-26] MEDS: Lisinopril 20 MG TABLET PO SCH (08:30)
[2018-11-26] MEDS: Aspirin 81 MG TAB.CHEW PO SCH (08:30)
[2018-11-26] MEDS: Furosemide 20 MG TABLET PO SCH (08:30)
[2018-11-26] MEDS: *HR* Digoxin 0.125 MG TABLET PO SCH (08:31)
[2018-11-26] MEDS: *HR* Enoxaparin 100 MG/ML SYRINGE SQ SCH ×2 (08:31→21:32)
[2018-11-26] MEDS: Insulin LISPRO 300 UNITS/3 ML VIAL SQ SCH ×4 (08:31→20:56)
--- NOTE | 2018-11-26 12:27 | Internal Med Progress Note ---
Date of Encounter: 11/26/18 Time of Encounter: 12:10 - Assessment and plan (1) Closed left hip fracture Current Visit: Yes Status: Acute Qualifiers: Encounter type: subsequent encounter Fracture healing: with delayed healing Qualified Code(s): S72.002G - Fracture of unspecified part of neck of left femur, subsequent encounter for closed fracture with delayed healing (2) DVT (deep venous thrombosis) Current Visit: Yes Status: Acute Qualifiers: DVT location: upper extremity Affected thrombotic vein of extremity: brachial Chronicity: acute Laterality: right Qualified Code(s): I82.621 - Acute embolism and thrombosis of deep veins of right upper extremity (3) Left humeral fracture Current Visit: No Status: Acute Qualifiers: Encounter type: subsequent encounter Humerus Location: greater tuberosity Fracture type: closed Fracture alignment: nondisplaced Fracture healing: with delayed healing Qualified Code(s): S42.255G - Nondisplaced fracture of greater tuberosity of left humerus, subsequent encounter for fracture with delayed healing - Subjective Interval history: Assessment and Plan (1) Closed left hip fracture Current visit: Yes Status: Acute PT is here for swing bed rehab for left hip fracture and left humerus fracture sustained after fall . She is post nailing repair of left hip. PT is not to be wt bearing and she is 3 person assist. she has recent V fib arrest and NSTEMI. She does not appear to have cardiac clearance for rehab. Would obtain this prior to initiating physical therapy. Will maintain pt on telemetry for now. Will monitor daily wt and i/o. Will replace K and monitor lytes. Will add digoxin to help with a fib rate control and continue beta sera and 81 mg asa and lipitor. She remains anemic. She had previous GI bleed and is now on lovenox for new R arm DVT. Will need to follow her blood count closely and transfuse if 7 or under and continue po c arafate and ppi. PT requests simethicone for gas. She will need speech eval of swallowing as she still seems to have difficulty with puree diet and is at risk of malnutrition. She did eat better last night and she liked the diomede jello her family brought. She had recent aspiration pneumonia and was treated with zosyn. Now sputum better but appears to have thrush. Will treat with nystatin. She has DM but should not use po amaryl at this time due to risk of hypoglycemia. She has hx of htn and is on norvasc and ramipril. Qualifiers: Encounter type: subsequent encounter Fracture healing: with delayed healing Qualified Code(s): S72.002G - Fracture of unspecified part of neck of left femur, subsequent encounter for closed fracture with delayed healing (2) DVT (deep venous thrombosis) Current visit: Yes Status: Acute This is new. Pt was placed on therapeutic lovenox at 90 SQ bid. Will need close monitoring due to recent GI bleed and anemia Qualifiers: DVT location: upper extremity Affected thrombotic vein of extremity: brachial Chronicity: acute Laterality: right Qualified Code(s): I82.621 - Acute embolism and thrombosis of deep veins of right upper extremity (3) Left humeral fracture Current visit: No Status: Acute see above Qualifiers: Encounter type: subsequent encounter Humerus Location: greater tuberosity Fracture type: closed Fracture alignment: nondisplaced Fracture healing: with delayed healing Qualified Code(s): S42.255G - Nondisplaced fracture of greater tuberosity of left humerus, subsequent encounter for fracture with delayed healing Interval HX Chief complaint: NSTEMI, recent v fib arrest,pneumonia, fractures, GI bleed, RUE DVT, Admitted From: Intrahospital Transfer (admit authorized and accepted by Dr Kayleigh Mendoza Today pt feeling slightly stronger. Family brought her snacks. She is still coughing with eating but feels less sob today. She reports that she is having a lot of gas and gas pressure. She says she has some irritation of mouth and feels very dry. Ms. Vasquez is a 87 year old female with recent 11/18/18 NSTEMI and V FIB cardio pulmonary arrest, acute respiratory failure and intubation, transfer to [facility]. She was extubated and weaned to room air. She was accepted back to [place] for swing bed by Dr Kayleigh Mendoza. I am covering for Dr Mendoza today. Pt denies CP and she does have baseline sob, she had a recent aspiration pneumonia. She still has some productive cough but sputum no longer discol ored. Pt finished course of Zosyn. She now has thrush. Will treat with nystatin. Cardiology note of Dr Jairo Rose on 11/21/18 from [place] states pt had NSTEMI but refused cardiac cath, and that pt is not a candidate for cardiac rehab. Pt was on amiodarone drip then, and is not currently on po amiodarone as cardiology advised to use beta sera. She did have cardiac echo that showed she was 60% EF. She has anemia, and current hb is over 8. Her last blood transfusion was 2 units given Nov 19. Will monitor She has hx of GI bleed on previous [place] admission that was cauterized. She was previously at [place] for rehab after fall and multiple fractures. She had Left HIP and Left Humerus fracture. She had nailing of left hip. She was in rehab here at [place] when she had the cardiac arrest. She is not to weight bear and she is a 3 person assist. She has new Right Arm DVT. She was started on Lovenox therapeutic for this on Nov 24. She had an IJ at [place] that was removed. She has baseline of atrial fib and HTN, and her rate is currently stable but tends to sometimes run elevated. She has Hypokalemia and is on daily po replacement but K is still low. She has urinary retention. She has dysphagia and eval at [place] indicates she should be on puree diet with thin liquid She has hx of DM but is not eating much. She is hard of hearing. She is alert and oriented and fatigued. EXAM General pt is chronic ill appearing more talkative today still soft spoken oriented x3.. She is responsive and makes fair eye contact Currently NAD she is wearing a sling on left arm HEENT no lesions noted dry mucosa Neck no bruit no JVD noted Heart currently irreg but no M auscultated Lungs reduced BS both bases Abd full soft BS + no guarding Ext bilat pedal edema soft sling and dressing pulses palp - Constitutional Vitals: Temp Pulse Resp BP Pulse Ox 97.6 F 81 16 145/81 96 11/26/18 12:06 11/26/18 12:06 11/26/18 12:06 11/26/18 12:06 11/26/18 12:06 Internal Medicine: Result - Labs CBC & Chem 7: 11/25/18 06:10 11/25/18 06:10 Consult Discharge Plan - Plan Referrals: Khanh Brooks, IGNACIO [Primary Care Provider] -
[2018-11-26] MEDS: Nystatin SUSP 5 ML UD.LIQ PO SCH ×3 (13:15→21:32)
[2018-11-26] MEDS: Simethicone 40 MG/0.6 ML MLS PO SCH ×2 (13:15→21:36)
[2018-11-26] MEDS: Preparation H Ointment 30 GM TUBE RC PRN (15:05)
[2018-11-27] MEDS: *HR* HYDROcodone/Acet 5/325 mg TABLET PO PRN ×3 (04:55→22:21)
[2018-11-27] MEDS: Levothyroxine 25 MCG TABLET PO SCH (04:56)
[2018-11-27 05:43] LABS: Hematocrit 31.9 % (35.3-44.9); Mean Corpuscular HGB Conc 31.3 g/dL (31.6-35.5); Mean Corpuscular Hemoglobin 28.6 pg (28.0-33.3); Mean Corpuscular Volume 91.1 fL (83.0-100.0); Mean Platelet Volume 11.4 fL (9.4-12.4); Platelet Count 253 K/mcL (140-400); Red Cell Distribution Width 16.4 % (11.5-14.5); White Blood Count 10.5 K/mcL (4.3-11.1)
[2018-11-27 05:56] LABS: BUN/Creatinine Ratio 22 (6-26); Blood Urea Nitrogen 17 mg/dL (8-23); Calcium 8.5 mg/dL (8.6-10.3); Carbon Dioxide 21 mEq/L (23-29); Chloride 99 mEq/L (98-107); Glucose 159 mg/dL (70-105); Osmolality,Calculated 273 (280-300); Potassium 4.2 mEq/L (3.5-5.1); Sodium 129 mEq/L (136-145); eGFR For African Americans > 60 (> 60); eGFR For Non-African Americans > 60 (> 60)
[2018-11-27] MEDS: Furosemide 20 MG TABLET PO SCH (08:33)
[2018-11-27] MEDS: Nystatin SUSP 5 ML UD.LIQ PO SCH ×4 (08:33→22:20)
[2018-11-27] MEDS: Metoprolol XL (24 HR) Succ 50 MG TAB.ER.24H PO SCH (08:33)
[2018-11-27] MEDS: *HR* Enoxaparin 100 MG/ML SYRINGE SQ SCH ×2 (08:33→22:21)
[2018-11-27] MEDS: *HR* Digoxin 0.125 MG TABLET PO SCH (08:33)
[2018-11-27] MEDS: Aspirin 81 MG TAB.CHEW PO SCH (08:33)
[2018-11-27] MEDS: Lisinopril 20 MG TABLET PO SCH (08:33)
[2018-11-27] MEDS: amLODIPine 5 MG TABLET PO SCH (08:33)
[2018-11-27] MEDS: Sucralfate 1 GM TABLET PO SCH ×4 (08:34→22:20)
[2018-11-27] MEDS: Insulin LISPRO 300 UNITS/3 ML VIAL SQ SCH ×4 (08:37→22:17)
[2018-11-27] MEDS: Simethicone 40 MG/0.6 ML MLS PO SCH ×3 (09:33→22:30)
--- NOTE | 2018-11-27 10:14 | Internal Med Progress Note ---
Date of Encounter: 11/27/18 Time of Encounter: 10:12 - Assessment and plan (1) Closed left hip fracture Current Visit: Yes Status: Acute Assessment and plan: pain controlled. monitor. continue PT and OT. will follow progress. Qualifiers: Encounter type: subsequent encounter Fracture healing: with delayed healing Qualified Code(s): S72.002G - Fracture of unspecified part of neck of left femur, subsequent encounter for closed fracture with delayed healing (2) Left humeral fracture Current Visit: Yes Status: Acute Assessment and plan: continue sling. pain controlled. f/u with ortho as scheduled. Qualifiers: Encounter type: subsequent encounter Humerus Location: greater tuberosity Fracture type: closed Fracture alignment: nondisplaced Fracture healing: with delayed healing Qualified Code(s): S42.255G - Nondisplaced fracture of greater tuberosity of left humerus, subsequent encounter for fracture with delayed healing (3) HTN (hypertension) Current Visit: No Status: Chronic Assessment and plan: controlled with current meds. monitor BP Qualifiers: Hypertension type: essential hypertension Qualified Code(s): I10 - Essential (primary) hypertension (4) DM2 (diabetes mellitus, type 2) Current Visit: Yes Status: Chronic Assessment and plan: Controlled with insulin. Monitor fingerstick blood sugar. Will adjust medic mirtha as necessary. Qualifiers: Diabetes mellitus long-term insulin use: without intermediate card tender use Diabetes mellitus complication status: without complication Qualified Code(s): E11.9 - Type 2 diabetes mellitus without complications (5) Acute blood loss anemia Current Visit: Yes Status: Acute Assessment and plan: Improving. Hemoglobin 10.0. - Time Spent With Patient less than 15 minutes - Subjective Interval history: Currently lying in bed, states her chest is sore from rib fractures. States pain to her left arm is controlled. Continues to cough with food. On pure diet. Speech therapy to eval. Was recently treated with [facility] for aspiration pneumonia. Incontinent of bowel. Denies fever, chills, nausea vomiting or diarrhea. Denies shortness of breath. - Constitutional Vitals: Temp Pulse Resp BP Pulse Ox 98.0 F 80 14 133/62 95 11/27/18 08:54 11/27/18 08:54 11/27/18 08:54 11/27/18 08:54 11/27/18 08:54 General appearance: Present: A&O X 3, pleasant, no acute distress, answers questions appropriately - Head Head exam: Present: atraumatic, normocephalic - Eye Eye exam: Present: PERRL, conjuntiva pink, sclera anicteric Pupils: Present: PERRL - Neck Neck exam general surgery: Present: supple, trachea midline. Absent: lymphadenopathy - Respiratory Respiratory exam: Present: CTAB. Absent: accessory muscle use, rales, rhonchi, wheezes - Cardiovascular Cardiovascular exam: Present: irregular rhythm, +S1, +S2. Absent: diastolic murmur, gallop, rubs, systolic murmur - GI/Abdominal GI/Abdominal exam: Present: normal bowel sounds, soft, no peritoneal signs. Absent: distended, tenderness - Extremities Exam Extremities exam: Present: warm, radial pulses palpable and symmetrical. Absent: calf tenderness, cyanotic, pedal edema Additional comments: Left arm in sling - Neurological Exam Neurological exam: Present: CN II-XII intact, oriented X3, no focal deficits. Absent: pronater drift, facial droop, speech deficit - Skin Skin exam: Present: dry, intact Internal Medicine: Result - Labs CBC & Chem 7: 11/27/18 05:20 11/27/18 05:20 Labs: Short CBC 11/27/18 Range/Units 05:20 WBC 10.5 (4.3-11.1) K/mcL Hgb 10.0 L D (11.5-15.4) g/dL Hct 31.9 L (35.3-44.9) % Plt Count 253 (140-400) K/mcL BMP 11/27/18 05:20 Sodium 129 L Potassium 4.2 Chloride 99 Carbon Dioxide 21 L BUN 17 Creatinine 0.76 Glucose 159 H Calcium 8.5 L Consult Discharge Plan - Plan Referrals: Khanh Brooks, SPECIAL SERVICES DIRECTOR [Primary Care Provider] -
[2018-11-27] MEDS: Preparation H Ointment 30 GM TUBE RC PRN (22:45)
[2018-11-28] MEDS: *HR* HYDROcodone/Acet 5/325 mg TABLET PO PRN ×3 (05:52→18:40)
[2018-11-28] MEDS: Levothyroxine 25 MCG TABLET PO SCH (05:52)
[2018-11-28] MEDS: Sucralfate 1 GM TABLET PO SCH ×4 (05:53→21:46)
[2018-11-28 07:17] LABS: Hemoglobin 8.8 g/dL (11.5-15.4); Mean Corpuscular HGB Conc 32.6 g/dL (31.6-35.5); Mean Corpuscular Hemoglobin 28.5 pg (28.0-33.3); Mean Corpuscular Volume 87.4 fL (83.0-100.0); Mean Platelet Volume 9.9 fL (9.4-12.4); Platelet Count 376 K/mcL (140-400); Red Blood Count 3.09 M/mcL (3.82-4.97); Red Cell Distribution Width 16.1 % (11.5-14.5); White Blood Count 11.8 K/mcL (4.3-11.1)
[2018-11-28 07:24] LABS: BUN/Creatinine Ratio 23 (6-26); Blood Urea Nitrogen 17 mg/dL (8-23); Calcium 8.3 mg/dL (8.6-10.3); Carbon Dioxide 26 mEq/L (23-29); Chloride 97 mEq/L (98-107); Glucose 150 mg/dL (70-105); Osmolality,Calculated 274 (280-300); Potassium 4.1 mEq/L (3.5-5.1); Sodium 130 mEq/L (136-145); eGFR For African Americans > 60 (> 60); eGFR For Non-African Americans > 60 (> 60)
[2018-11-28] MEDS: Metoprolol XL (24 HR) Succ 50 MG TAB.ER.24H PO SCH (08:00)
[2018-11-28] MEDS: Nystatin SUSP 5 ML UD.LIQ PO SCH ×4 (08:00→21:47)
[2018-11-28] MEDS: Furosemide 20 MG TABLET PO SCH (08:00)
[2018-11-28] MEDS: Aspirin 81 MG TAB.CHEW PO SCH (08:00)
[2018-11-28] MEDS: amLODIPine 5 MG TABLET PO SCH (08:00)
[2018-11-28] MEDS: *HR* Enoxaparin 100 MG/ML SYRINGE SQ SCH ×2 (08:00→21:48)
[2018-11-28] MEDS: *HR* Digoxin 0.125 MG TABLET PO SCH (08:00)
[2018-11-28] MEDS: Lisinopril 20 MG TABLET PO SCH (08:00)
[2018-11-28] MEDS: Insulin LISPRO 300 UNITS/3 ML VIAL SQ SCH ×4 (08:01→21:50)
[2018-11-28] MEDS: Simethicone 40 MG/0.6 ML MLS PO SCH ×3 (08:02→21:47)
[2018-11-28] MEDS: tiZANidine 4 MG TABLET PO SCH ×3 (11:07→21:46)
--- NOTE | 2018-11-28 12:02 | Internal Med Progress Note ---
Date of Encounter: 11/28/18 Time of Encounter: 11:57 - Assessment and plan (1) Closed left hip fracture Current Visit: Yes Status: Acute Assessment and plan: Patient with continued complaints of pain to her left hip which she describes as a sharp pain radiating to the mid thigh has also had complaints of muscle spasms to the left leg. Patient was initiated on Zanaflex this morning and will reevaluate its effects. Left hip surgical incision appears healthy and intact. Patient has been refusing therapy and mobilization. Was repositioned in her bed and will obtain x-rays of left hip for evaluation. She has been afebrile and her WBC count currently is at 11.8. We will obtain inflammatory markers with morning labs. We will continue with current pain medication and continue to attempt mobilization Qualifiers: Encounter type: subsequent encounter Fracture healing: with delayed healing Qualified Code(s): S72.002G - Fracture of unspecified part of neck of left femur, subsequent encounter for closed fracture with delayed healing (2) Left humeral fracture Current Visit: Yes Status: Acute Assessment and plan: No acute issues. R remains slim with nonweightbearing. Distal CV normal. We will continue with current plan of care Qualifiers: Encounter type: subsequent encounter Humerus Location: greater tuberosity Fracture type: closed Fracture alignment: nondisplaced Fracture healing: with delayed healing Qualified Code(s): S42.255G - Nondisplaced fracture of greater tuberosity of left humerus, subsequent encounter for fracture with delayed healing (3) HTN (hypertension) Current Visit: Yes Status: Chronic Assessment and plan: Vital signs are stable. We will continue with current medications. Qualifiers: Hypertension type: essential hypertension Qualified Code(s): I10 - Essential (primary) hypertension (4) DM2 (diabetes mellitus, type 2) Current Visit: Yes Status: Chronic Assessment and plan: No acute issues. Glucose is been fairly well-controlled we will continue to monitor with fingersticks and coverage with sliding scale. Qualifiers: Diabetes mellitus longwall shearer operator insulin use: without longwall shearer operator use Diabetes mellitus complication status: without complication Qualified Code(s): E11.9 - Type 2 diabetes mellitus without complications (5) NSTEMI (non-ST elevated myocardial infarction) Current Visit: Yes Status: Acute Assessment and plan: Acute issues at this time. Patient denies any chest palpitations or discomforts. Signs stable. We will continue with current medications. Patient remains on collection specialist with no reported ectopy (6) Gastric ulcer Current Visit: Yes Status: Acute Assessment and plan: No acute issues. No signs of active bleeding. Hemoglobin was remained stable. We will continue to monitor Qualifiers: Gastric ulcer chronicity: unspecified ulcer chronicity Gastric ulcer complication status: with hemorrhage Qualified Code(s): K25.4 - Chronic or unspecified gastric ulcer with hemorrhage - Time Spent With Patient less than 15 minutes - Subjective Interval history: Patient with complaints of pain to her left hip which she initially described as muscle spasms. Patient was later reevaluated after continue complaints of pain to the hip and currently states that he does not muscle spasms but of pain that radiates from the hip down to the mid thigh area. Patient has had continued complaints of pain from the hip postoperatively. Patient has had minimal mobilization due to a recent rehospitalization for dysrhythmias and a cardiac arrest. Therapy reports that patient had refused therapy evaluations morning due to her pain. Patient has been afebrile and most recent WBC was 11.8. Surgical incision remains healthy in appearance with no ecchymosis or erythema. Left leg is slightly swollen distal to surgical site. - Constitutional Vitals: Temp Pulse Resp BP Pulse Ox 98.3 F 91 15 173/65 94 11/28/18 06:58 11/28/18 06:58 11/28/18 06:58 11/28/18 06:58 11/28/18 06:58 General appearance: Present: A&O X 3, pleasant, no acute distress, answers questions appropriately - Head Head exam: Present: atraumatic, normocephalic - Eye Eye exam: Present: PERRL, conjuntiva pink, sclera anicteric Pupils: Present: PERRL - Neck Neck exam general surgery: Present: supple, trachea midline. Absent: lymphadenopathy - Respiratory Respiratory exam: Present: decreased breath sounds, CTAB. Absent: accessory muscle use, rales, rhonchi, wheezes - Cardiovascular Cardiovascular exam: Present: RRR, +S1, +S2. Absent: diastolic murmur, gallop, rubs, systolic murmur - GI/Abdominal GI/Abdominal exam: Present: normal bowel sounds, soft, no peritoneal signs. Absent: distended, tenderness - Extremities Exam Extremities exam: Present: warm, radial pulses palpable and symmetrical. Absent: calf tenderness, cyanotic, pedal edema Additional comments: Patient's left arm remains in sling with distal CV normal. Patient's left hip surgical incision appears healthy and intact. Slight swelling to left leg distal surgical site - Neurological Exam Neurological exam: Present: CN II-XII intact, oriented X3, no focal deficits. Absent: pronater drift, facial droop, speech deficit - Skin Skin exam: Present: dry, intact Internal Medicine: Result - Labs CBC & Chem 7: 11/28/18 06:50 11/28/18 06:50 Labs: Short CBC 11/28/18 Range/Units 06:50 WBC 11.8 H (4.3-11.1) K/mcL Hgb 8.8 L (11.5-15.4) g/dL Hct 27.0 L (35.3-44.9) % Plt Count 376 (140-400) K/mcL BMP 11/28/18 06:50 Sodium 130 L Potassium 4.1 Chloride 97 L Carbon Dioxide 26 BUN 17 Creatinine 0.73 Glucose 150 H Calcium 8.3 L Consult Discharge Plan - Plan Referrals: Khanh Brooks, CONTOUR PATH TAPE MILL OPERATOR [Primary Care Provider] -
[2018-11-29] MEDS: Sucralfate 1 GM TABLET PO SCH ×4 (05:10→22:16)
[2018-11-29] MEDS: Levothyroxine 25 MCG TABLET PO SCH (05:10)
[2018-11-29] MEDS: *HR* Enoxaparin 100 MG/ML SYRINGE SQ SCH ×2 (08:17→22:17)
[2018-11-29] MEDS: *HR* Digoxin 0.125 MG TABLET PO SCH (08:18)
[2018-11-29] MEDS: tiZANidine 4 MG TABLET PO SCH ×4 (08:18→22:16)
[2018-11-29] MEDS: Furosemide 20 MG TABLET PO SCH (08:18)
[2018-11-29] MEDS: Metoprolol XL (24 HR) Succ 50 MG TAB.ER.24H PO SCH (08:18)
[2018-11-29] MEDS: Lisinopril 20 MG TABLET PO SCH (08:18)
[2018-11-29] MEDS: Aspirin 81 MG TAB.CHEW PO SCH (08:18)
[2018-11-29] MEDS: amLODIPine 5 MG TABLET PO SCH (08:19)
[2018-11-29] MEDS: Nystatin SUSP 5 ML UD.LIQ PO SCH ×4 (08:19→22:19)
[2018-11-29] MEDS: Simethicone 40 MG/0.6 ML MLS PO SCH ×3 (08:19→22:26)
[2018-11-29] MEDS: Insulin LISPRO 300 UNITS/3 ML VIAL SQ SCH ×4 (08:20→22:12)
[2018-11-29 08:47] LABS: Hematocrit 26.8 % (35.3-44.9); Hemoglobin 8.9 g/dL (11.5-15.4); Mean Corpuscular HGB Conc 33.2 g/dL (31.6-35.5); Mean Corpuscular Volume 87.3 fL (83.0-100.0); Mean Platelet Volume 10.7 fL (9.4-12.4); Platelet Count 411 K/mcL (140-400); Red Blood Count 3.07 M/mcL (3.82-4.97); Red Cell Distribution Width 16.4 % (11.5-14.5); White Blood Count 12.9 K/mcL (4.3-11.1)
[2018-11-29 09:02] LABS: BUN/Creatinine Ratio 27 (6-26); Blood Urea Nitrogen 20 mg/dL (8-23); Calcium 8.3 mg/dL (8.6-10.3); Carbon Dioxide 27 mEq/L (23-29); Chloride 94 mEq/L (98-107); Glucose 140 mg/dL (70-105); Osmolality,Calculated 269 (280-300); Potassium 3.7 mEq/L (3.5-5.1); Sodium 127 mEq/L (136-145); eGFR For African Americans > 60 (> 60); eGFR For Non-African Americans > 60 (> 60)
[2018-11-29] MEDS: *HR* HYDROcodone/Acet 5/325 mg TABLET PO PRN ×3 (11:22→23:19)
--- NOTE | 2018-11-29 11:37 | Internal Med Progress Note ---
Date of Encounter: 11/29/18 Time of Encounter: 11:35 - Assessment and plan (1) Closed left hip fracture Current Visit: Yes Status: Acute Assessment and plan: pain controlled. monitor. continue PT and OT. will follow progress. Qualifiers: Encounter type: subsequent encounter Fracture healing: with delayed healing Qualified Code(s): S72.002G - Fracture of unspecified part of neck of left femur, subsequent encounter for closed fracture with delayed healing (2) Left humeral fracture Current Visit: Yes Status: Acute Assessment and plan: continue sling. pain controlled. f/u with ortho as scheduled. Qualifiers: Encounter type: subsequent encounter Humerus Location: greater tuberosity Fracture type: closed Fracture alignment: nondisplaced Fracture healing: with delayed healing Qualified Code(s): S42.255G - Nondisplaced fracture of greater tuberosity of left humerus, subsequent encounter for fracture with delayed healing (3) HTN (hypertension) Current Visit: Yes Status: Chronic Assessment and plan: controlled with current meds. monitor BP Qualifiers: Hypertension type: essential hypertension Qualified Code(s): I10 - Essential (primary) hypertension (4) DM2 (diabetes mellitus, type 2) Current Visit: Yes Status: Chronic Assessment and plan: Controlled with insulin. Monitor fingerstick blood sugar. Will adjust medi cines as necessary. Qualifiers: Diabetes mellitus buttermaker helper insulin use: without buttermaker helper use Diabetes mellitus complication status: without complication Qualified Code(s): E11.9 - Type 2 diabetes mellitus without complications (5) Acute blood loss anemia Current Visit: Yes Status: Acute Assessment and plan: stable hgb 8.9. monitor labs. - Time Spent With Patient less than 15 minutes - Subjective Interval history: Sitting up in wheelchair, was total assist with sliding board to transfer from bed to wheelchair. States she is having pain through left leg. States pain to her left arm is controlled. Continues to cough with food. refused pure diet. Denies fever, chills, nausea vomiting or diarrhea. Denies shortness of breath. - Constitutional Vitals: Temp Pulse Resp BP Pulse Ox 97.9 F 76 16 137/81 94 11/29/18 07:00 11/29/18 07:00 11/29/18 07:00 11/29/18 07:00 11/29/18 07:00 General appearance: Present: A&O X 3, pleasant, no acute distress, answers questions appropriately - Head Head exam: Present: atraumatic, normocephalic - Eye Eye exam: Present: PERRL, conjuntiva pink, sclera anicteric Pupils: Present: PERRL - Neck Neck exam general surgery: Present: supple, trachea midline. Absent: lymphad enopathy - Respiratory Respiratory exam: Present: CTAB. Absent: accessory muscle use, rales, rhonchi, wheezes - Cardiovascular Cardiovascular exam: Present: RRR, +S1, +S2. Absent: diastolic murmur, gallop, rubs, systolic murmur - GI/Abdominal GI/Abdominal exam: Present: normal bowel sounds, soft, no peritoneal signs. Absent: distended, tenderness - Extremities Exam Extremities exam: Present: warm, radial pulses palpable and symmetrical. Absent: calf tenderness, cyanotic, pedal edema - Incison Comments: left hip incision drsg dry and intact. - Neurological Exam Neurological exam: Present: CN II-XII intact, oriented X3, no focal deficits. Absent: pronater drift, facial droop, speech deficit - Skin Skin exam: Present: dry, intact Internal Medicine: Result - Labs CBC & Chem 7: 11/29/18 07:40 11/29/18 07:40 Labs: Short CBC 11/29/18 Range/Units 07:40 WBC 12.9 H (4.3-11.1) K/mcL Hgb 8.9 L (11.5-15.4) g/dL Hct 26.8 L (35.3-44.9) % Plt Count 411 H (140-400) K/mcL BMP 11/29/18 07:40 Sodium 127 L Potassium 3.7 Chloride 94 L Carbon Dioxide 27 BUN 20 Creatinine 0.74 Glucose 140 H Calcium 8.3 L - Impressions Impressions Femur X-Ray 11/28/18 13:33 IMPRESSION: 1. No acute complication status post intramedullary blu fixation of the left intertrochanteric proximal femur fracture. D/ / 11/28/2018 14:35:41 Bg Diaz MD / [email or web address] Interpreting Provider: Bg Diaz MD Consult Discharge Plan - Plan Referrals: Khanh Brooks, YARDER PUNCHER [Primary Care Provider] -
[2018-11-29 13:24] LABS: C-Reactive Protein 96 mg/L (Less than 10)
--- NOTE | 2018-11-29 14:52 | Psychological Evaluation ---
Date of Encounter: 11/29/18 Time of Encounter: 10:30 (Bedside) History of Present Illness History of present illness: Ms. Vasquez is a 87 year old female with recent 11/18/18 NSTEMI and V FIB cardio pulmonary arrest, acute respiratory failure and intubation, transfer to [facility] [place]. She was extubated and weaned to room air. She was accepted back to [place] for swing bed by Dr Kayleigh Mendoza. Pt denies CP and she does have baseline sob, she had a recent aspiration pneumonia. Past Medical History - Psychiatric History Psychiatric history: Reports: no psych history Home Medications and Allergies Atorvastatin [Lipitor] 40 mg PO HS 11/13/18 [History] Glimepiride [Amaryl] 4 mg PO DAILY 11/13/18 [History] Levothyroxine [Synthroid] 25 mcg PO 30 11/13/18 [History] Metoprolol Succinate [Toprol Xl] 50 mg PO DAILY 11/13/18 [History] Ramipril [Altace] 10 mg PO DAILY 11/13/18 [History] Aspirin 81 mg PO DAILY tab.chew 11/24/18 [Rx] Enoxaparin [Lovenox] 90 mg SQ BID syringe 11/24/18 [Rx] Furosemide [Lasix] 20 mg PO DAILY 30 Days #30 tablet 11/24/18 [Rx] HYDROcodone/Acet 5/325 mg [[place] 5-325 mg] 1 tab PO Q4H PRN 3 Days #12 tablet 11/24/18 [Rx] Pantoprazole Sodium 40 mg PO DAILY 30 Days #30 tablet. 11/24/18 [Rx] Potassium Chloride 8 meq PO DAILY 30 Days #30 capsule.er 11/24/18 [Rx] Sucralfate [Carafate] 1 gm PO QIDAC tablet 11/24/18 [Rx] amLODIPine [Norvasc] 10 mg PO DAILY tablet 11/24/18 [Rx] Allergy/AdvReac Type Severity Reaction Status Date / Time celecoxib [From Celebrex] Allergy Hives Verified 11/14/18 10:49 codeine Allergy Hives Verified 11/14/18 10:49 Social History - Social History Social History: 33 years ago and lives alone. Has 4 adult children and a son lives on her property and checks in several times through the day. He found her when she sustained the initial fall in her kitchen. She has never had a drivers license and relies on [employer] for transportation. She stated she was very active and had never been hospitalized until recently. - Tobacco Use Smoking Status: Never smoker - Alcohol Use Alcohol Use: none - Drug Use Drug Use: none Cognitive/Emotional Assessment - Cognitive Ability Attention Span Ability: Capable of Focused Attention, Capable of Sustained Attention Language Function Ability: No Deficits Noted Verbal Communication Ability: Conversational Style Problem Solving Ability: Able To Solve Simple Problems Level of Alertness: Alert Memory Description: Recent Intact Orientation: Person, Place, Time Ability to Follow Directions: Good Speech Pattern: Appropriate Additional Findings: Unable to recall 3 wrods after 5 min even with catigorical cuing but able to repeat immeidately. Unable to spell WORLD backwards but able to forward. Knew pres but not previous pres name (described)and not governor. Digits forward 6 and backward digits 3. - Emotional Status Mood Description: Depressed Affect Description: Full range Coping Ability: Verbalizes positive coping skills Additional Findings: Stated she was concerned with current issues and plans to return home at level prior. Depends on winsome to sustain.Some difficulty with sleep due to left sided pain. Assessment & Plan - Diagnosis (1) Adjustment disorder with depressed mood - Prognosis Prognosis: Good - Treatment Plan Treatment Plan/Recommendations: Assist with coping strategies for depression and rehabilitation for returning home or adjusting to needed changes in living situation. Treatment Frequency: weekly Next Session Date: 12/06/18 Procedures - Participants Therapy Participant: Patient - Session Time Session Start Time: 10:30 Session Stop Time: 11:00
[2018-11-30] MEDS: Levothyroxine 25 MCG TABLET PO SCH (05:23)
[2018-11-30] MEDS: Sucralfate 1 GM TABLET PO SCH ×4 (05:23→22:01)
[2018-11-30 06:36] LABS: Hematocrit 25.3 % (35.3-44.9); Hemoglobin 8.3 g/dL (11.5-15.4); Mean Corpuscular HGB Conc 32.8 g/dL (31.6-35.5); Mean Corpuscular Hemoglobin 28.6 pg (28.0-33.3); Mean Corpuscular Volume 87.2 fL (83.0-100.0); Mean Platelet Volume 10.3 fL (9.4-12.4); Platelet Count 411 K/mcL (140-400); Red Cell Distribution Width 16.2 % (11.5-14.5); White Blood Count 11.6 K/mcL (4.3-11.1)
[2018-11-30 07:04] LABS: BUN/Creatinine Ratio 28 (6-26); Blood Urea Nitrogen 24 mg/dL (8-23); Calcium 8.4 mg/dL (8.6-10.3); Carbon Dioxide 26 mEq/L (23-29); Chloride 92 mEq/L (98-107); Glucose 152 mg/dL (70-105); Osmolality,Calculated 271 (280-300); Potassium 3.6 mEq/L (3.5-5.1); Sodium 127 mEq/L (136-145); eGFR For African Americans > 60 (> 60); eGFR For Non-African Americans > 60 (> 60)
[2018-11-30] MEDS: *HR* Enoxaparin 100 MG/ML SYRINGE SQ SCH ×2 (08:15→22:01)
[2018-11-30] MEDS: Insulin LISPRO 300 UNITS/3 ML VIAL SQ SCH ×4 (08:15→22:00)
[2018-11-30] MEDS: amLODIPine 5 MG TABLET PO SCH (08:16)
[2018-11-30] MEDS: Metoprolol XL (24 HR) Succ 50 MG TAB.ER.24H PO SCH (08:16)
[2018-11-30] MEDS: tiZANidine 4 MG TABLET PO SCH ×4 (08:16→22:01)
[2018-11-30] MEDS: *HR* Digoxin 0.125 MG TABLET PO SCH (08:16)
[2018-11-30] MEDS: Lisinopril 20 MG TABLET PO SCH (08:16)
[2018-11-30] MEDS: *HR* HYDROcodone/Acet 5/325 mg TABLET PO PRN ×3 (08:16→17:56)
[2018-11-30] MEDS: Furosemide 20 MG TABLET PO SCH (08:17)
[2018-11-30] MEDS: Aspirin 81 MG TAB.CHEW PO SCH (08:17)
[2018-11-30] MEDS: Nystatin SUSP 5 ML UD.LIQ PO SCH ×4 (08:17→22:01)
[2018-11-30] MEDS: Simethicone 40 MG/0.6 ML MLS PO SCH ×3 (10:01→22:00)
--- NOTE | 2018-11-30 10:58 | Internal Med Progress Note ---
Date of Encounter: 11/30/18 Time of Encounter: 11:29 - Assessment and plan (1) Closed left hip fracture Current Visit: Yes Status: Acute Assessment and plan: Patient with continued complaints of pain to her left hip which she describes as a sharp pain radiating to the mid thigh has also had complaints of muscle spasms to the left leg. Patient was initiated on Zanaflex several days ago. Left hip surgical incision appears healthy and intact. Patient has been refusing therapy and mobilization on multiple occasions. We will continue with current pain medication and continue to attempt mobilization Qualifiers: Encounter type: subsequent encounter Fracture healing: with delayed healing Qualified Code(s): S72.002G - Fracture of unspecified part of neck of left femur, subsequent encounter for closed fracture with delayed healing (2) Left humeral fracture Current Visit: Yes Status: Acute Assessment and plan: No acute issues. Right arm remains slim with nonweightbearing. Distal CV normal. We will continue with current plan of care Qualifiers: Encounter type: subsequent encounter Humerus Location: greater tuberosity Fracture type: closed Fracture alignment: nondisplaced Fracture healing: with delayed healing Qualified Code(s): S42.255G - Nondisplaced fracture of greater tuberosity of left humerus, subsequent encounter for fracture with delayed healing (3) HTN (hypertension) Current Visit: Yes Status: Chronic Assessment and plan: Vital signs are stable. We will continue with current medications. Qualifiers: Hypertension type: essential hypertension Qualified Code(s): I10 - Essential (primary) hypertension (4) DM2 (diabetes mellitus, type 2) Current Visit: Yes Status: Chronic Assessment and plan: No acute issues. Glucose is been fairly well-controlled we will continue to monitor with fingersticks and coverage with sliding scale. Qualifiers: Diabetes mellitus assisted insulin use: without assisted use Diabetes mellitus complication status: without complication Qualified Code(s): E11.9 - Type 2 diabetes mellitus without complications (5) NSTEMI (non-ST elevated myocardial infarction) Current Visit: Yes Status: Acute Assessment and plan: Acute issues at this time. Patient denies any chest palpitations or discomforts . Vital signs remain stable. We will continue with current medications. Patient remains on quality assurance monitor final with no reported ectopy (6) Gastric ulcer Current Visit: Yes Status: Acute Assessment and plan: No acute issues. No signs of active bleeding. Hemoglobin was remained stable. We will continue to monitor Qualifiers: Gastric ulcer chronicity: unspecified ulcer chronicity Gastric ulcer complication status: with hemorrhage Qualified Code(s): K25.4 - Chronic or unspecified gastric ulcer with hemorrhage - Time Spent With Patient less than 15 minutes - Subjective Interval history: Patient continues to c/o pain tot he left hip and leg. States that her pain medicine has been effective, but does not last long enough for duration. Patient continues to refuse therapy at times due to pain. Patient states that her pain is a sharp pain that radiates down the post thigh and also c/o muscle spasms to the leg itself. - Constitutional Vitals: Temp Pulse Resp BP Pulse Ox 98.5 F 83 16 147/74 94 11/30/18 08:00 11/30/18 08:00 11/30/18 08:00 11/30/18 08:00 11/30/18 08:00 General appearance: Present: A&O X 3, pleasant, no acute distress, answers questions appropriately - Head Head exam: Present: atraumatic, normocephalic - Eye Eye exam: Present: PERRL, conjuntiva pink, sclera anicteric Pupils: Present: PERRL - Neck Neck exam general surgery: Present: supple, trachea midline. Absent: lymphadenopathy - Respiratory Respiratory exam: Present: decreased breath sounds, CTAB. Absent: accessory muscle use, rales, rhonchi, wheezes - Cardiovascular Cardiovascular exam: Present: RRR, +S1, +S2. Absent: diastolic murmur, gallop, rubs, systolic murmur - GI/Abdominal GI/Abdominal exam: Present: normal bowel sounds, soft, no peritoneal signs. Absent: distended, tenderness - Extremities Exam Extremities exam: Present: normal capillary refill, normal inspection, pedal edema, warm, radial pulses palpable and symmetrical. Absent: calf tenderness, cyanotic Additional comments: Left hip surgical incisions appear healthy and intact. No ecchymosis. Left leg is slightly edematous. Left arm remains in sling with nonweightbearing. Distal CV checks normal - Neurological Exam Neurological exam: Present: CN II-XII intact, oriented X3, no focal deficits. Absent: pronater drift, facial droop, speech deficit - Skin Skin exam: Present: dry, intact Internal Medicine: Result - Labs CBC & Chem 7: 11/30/18 05:35 11/30/18 05:35 Labs: Short CBC 11/30/18 Range/Units 05:35 WBC 11.6 H (4.3-11.1) K/mcL Hgb 8.3 L (11.5-15.4) g/dL Hct 25.3 L (35.3-44.9) % Plt Count 411 H (140-400) K/mcL BMP 11/30/18 05:35 Sodium 127 L Potassium 3.6 Chloride 92 L Carbon Dioxide 26 BUN 24 H Creatinine 0.86 Glucose 152 H Calcium 8.4 L Consult Discharge Plan - Plan Referrals: Khanh Brooks, MANAGER OF SUSTAINABILITY [Primary Care Provider] -
[2018-11-30] MEDS: Nystatin POWDER 30 GM BOTTLE TP SCH (22:01)
[2018-12-01] MEDS: Sucralfate 1 GM TABLET PO SCH ×4 (04:38→21:36)
[2018-12-01] MEDS: *HR* HYDROcodone/Acet 5/325 mg TABLET PO PRN ×5 (04:38→23:45)
[2018-12-01] MEDS: Levothyroxine 25 MCG TABLET PO SCH (04:38)
[2018-12-01 05:13] LABS: Hemoglobin 8.3 g/dL (11.5-15.4); Mean Corpuscular HGB Conc 31.9 g/dL (31.6-35.5); Mean Corpuscular Hemoglobin 28.1 pg (28.0-33.3); Mean Corpuscular Volume 88.1 fL (83.0-100.0); Mean Platelet Volume 10.6 fL (9.4-12.4); Platelet Count 450 K/mcL (140-400); Red Blood Count 2.95 M/mcL (3.82-4.97); Red Cell Distribution Width 16.1 % (11.5-14.5); White Blood Count 9.5 K/mcL (4.3-11.1)
[2018-12-01 05:28] LABS: BUN/Creatinine Ratio 27 (6-26); Blood Urea Nitrogen 26 mg/dL (8-23); Calcium 8.3 mg/dL (8.6-10.3); Carbon Dioxide 23 mEq/L (23-29); Chloride 93 mEq/L (98-107); Glucose 174 mg/dL (70-105); Osmolality,Calculated 273 (280-300); Potassium 4.1 mEq/L (3.5-5.1); Sodium 127 mEq/L (136-145); eGFR For African Americans > 60 (> 60); eGFR For Non-African Americans 54 (> 60)
[2018-12-01] MEDS: tiZANidine 4 MG TABLET PO SCH ×4 (06:24→21:35)
[2018-12-01] MEDS: amLODIPine 5 MG TABLET PO SCH (09:10)
[2018-12-01] MEDS: Lisinopril 20 MG TABLET PO SCH (09:10)
[2018-12-01] MEDS: Metoprolol XL (24 HR) Succ 50 MG TAB.ER.24H PO SCH (09:10)
[2018-12-01] MEDS: Aspirin 81 MG TAB.CHEW PO SCH (09:11)
[2018-12-01] MEDS: Furosemide 20 MG TABLET PO SCH (09:11)
[2018-12-01] MEDS: Nystatin SUSP 5 ML UD.LIQ PO SCH ×4 (09:11→21:35)
[2018-12-01] MEDS: *HR* Enoxaparin 100 MG/ML SYRINGE SQ SCH ×2 (09:11→21:35)
[2018-12-01] MEDS: *HR* Digoxin 0.125 MG TABLET PO SCH (09:11)
--- NOTE | 2018-12-01 10:09 | Internal Med Progress Note ---
Date of Encounter: 12/01/18 Time of Encounter: 10:08 - Assessment and plan (1) Closed left hip fracture Current Visit: Yes Status: Acute Assessment and plan: Patient with continued complaints of pain to her left hip which she describes as a burning pain radiating to the mid thigh. Left hip surgical incision appears healthy and intact. He has been progressed his pain yesterday and therapy. We will continue with current pain medication and continue to attempt mobilization Qualifiers: Encounter type: subsequent encounter Fracture healing: with delayed healing Qualified Code(s): S72.002G - Fracture of unspecified part of neck of left femur, subsequent encounter for closed fracture with delayed healing (2) Left humeral fracture Current Visit: Yes Status: Acute Assessment and plan: No acute issues. Right arm remains slim with nonweightbearing. Distal CV normal. We will continue with current plan of care Qualifiers: Encounter type: subsequent encounter Humerus Location: greater tuberosity Fracture type: closed Fracture alignment: nondisplaced Fracture healing: with delayed healing Qualified Code(s): S42.255G - Nondisplaced fracture of greater tuberosity of left humerus, subsequent encounter for fracture with delayed healing (3) HTN (hypertension) Current Visit: Yes Status: Chronic Assessment and plan: Vital signs are stable. We will continue with current medications. Qualifiers: Hypertension type: essential hypertension Qualified Code(s): I10 - Essential (primary) hypertension (4) DM2 (diabetes mellitus, type 2) Current Visit: Yes Status: Chronic Assessment and plan: No acute issues. Glucose is been fairly well-controlled we will continue to monitor with fingersticks and coverage with sliding scale. Qualifiers: Diabetes mellitus [facility] insulin use: without intermediate frame tender use Diabetes mellitus complication status: without complication Qualified Code(s): E11.9 - Type 2 diabetes mellitus without complications (5) NSTEMI (non-ST elevated myocardial infarction) Current Visit: Yes Status: Acute Assessment and plan: Acute issues at this time. Patient denies any chest palpitations or discomforts. Vital signs remain stable. We will continue with current medications. Patient remains on telemetry monitor with no reported ectopy (6) Gastric ulcer Current Visit: Yes Status: Acute Assessment and plan: No acute issues. No signs of active bleeding. Hemoglobin was remained stable. 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 Culver catheter placed. Evaluate need of Culver catheter and so we will refer to urology. (8) Stool incontinence Current Visit: Yes Status: Acute Assessment and plan: Nurse reports patient has had stool incontinence. She states that has been a chronic issue prior to admission. Concerns of possible UTI. We will do a medication review to evaluate for any possible sources. We will continue to monitor closely. Abdomen appears negative on exam Qualifiers: Fecal incontinence type: unspecified Qualified Code(s): R15.9 - Full incontinence of feces - Time Spent With Patient less than 15 minutes - Subjective Interval history: Patient continues to c/o pain tot he left hip and leg. Patient states that she has a burning type pain that radiates along to the medial thigh. No erythema or signs of trauma noted. Surgical and appears healthy. States that her pain medicine has been effective, but does not last long enough for duration. Nursing reports patient did participate in therapy yesterday. Patient also having difficulty with urinary retention and had to have her Culver catheter placed last evening. - Constitutional Vitals: Temp Pulse Resp BP Pulse Ox 98.5 F 86 17 131/76 92 12/01/18 06:45 12/01/18 06:45 12/01/18 06:45 12/01/18 06:45 12/01/18 06:45 General appearance: Present: A&O X 3, pleasant, no acute distress, answers questions appropriately - Head Head exam: Present: atraumatic, normocephalic - Eye Eye exam: Present: PERRL, conjuntiva pink, sclera anicteric Pupils: Present: PERRL - Neck Neck exam general surgery: Present: supple, trachea midline. Absent: lymphadenopathy - Respiratory Respiratory exam: Present: decreased breath sounds, CTAB. Absent: accessory muscle use, rales, rhonchi, wheezes - Cardiovascular Cardiovascular exam: Present: RRR, +S1, +S2. Absent: diastolic murmur, gallop, rubs, systolic murmur - GI/Abdominal GI/Abdominal exam: Present: normal bowel sounds, soft, no peritoneal signs. Absent: distended, tenderness - Extremities Exam Extremities exam: Present: warm, radial pulses palpable and symmetrical. Absent: calf tenderness, cyanotic, pedal edema Additional comments: Left hip surgical incision appears healthy and intact. No erythema or ecchymosis noted. Slight edema noted to left hip and leg. Maintenance and sling due to left humeral fracture. Nonweightbearing to arm - Neurological Exam Neurological exam: Present: CN II-XII intact, oriented X3, no focal deficits. Absent: pronater drift, facial droop, speech deficit - Skin Skin exam: Present: dry, intact Internal Medicine: Result - Labs CBC & Chem 7: 12/01/18 04:42 12/01/18 04:42 Labs: Short CBC 12/01/18 Range/Units 04:42 WBC 9.5 (4.3-11.1) K/mcL Hgb 8.3 L (11.5-15.4) g/dL Hct 26.0 L (35.3-44.9) % Plt Count 450 H (140-400) K/mcL BMP 12/01/18 04:42 Sodium 127 L Potassium 4.1 Chloride 93 L Carbon Dioxide 23 BUN 26 H Creatinine 0.98 Glucose 174 H Calcium 8.3 L Consult Discharge Plan - Plan Referrals: Khanh Brooks, TOOL AND DIE SUPERVISOR [Primary Care Provider] -
[2018-12-01] MEDS: Nystatin POWDER 30 GM BOTTLE TP SCH ×3 (10:52→21:35)
[2018-12-01] MEDS: Simethicone 40 MG/0.6 ML MLS PO SCH ×3 (10:52→21:35)
[2018-12-01] MEDS: Insulin LISPRO 300 UNITS/3 ML VIAL SQ SCH ×2 (10:52→18:22)
[2018-12-01] MEDS ORDERED: *HR* Dextrose 50 % in Water (Syg) 50 ML SYRINGE IVP PRN (11:00)
[2018-12-01] MEDS ORDERED: D5% in Water 1,000 ML IVC PRN (11:00)
[2018-12-01] MEDS ORDERED: Dextrose Gel 15 GM/37.5 ML TUBE PO PRN ×2 (11:00)
[2018-12-02] MEDS: *HR* HYDROcodone/Acet 5/325 mg TABLET PO PRN ×4 (06:03→21:15)
[2018-12-02] MEDS: Levothyroxine 25 MCG TABLET PO SCH (06:03)
[2018-12-02] MEDS: Sucralfate 1 GM TABLET PO SCH ×4 (06:03→21:06)
--- NOTE | 2018-12-02 09:41 | Internal Med Progress Note ---
Date of Encounter: 12/02/18 Time of Encounter: 09:40 - Assessment and plan (1) Closed left hip fracture Current Visit: Yes Status: Acute Assessment and plan: The patient is complaining of pain and inability to participate because of same. She states that she is trying as hard as she can but her pain is severe and she recently had another pain pill. Qualifiers: Encounter type: subsequent encounter Fracture healing: with delayed healing Qualified Code(s): S72.002G - Fracture of unspecified part of neck of left femur, subsequent encounter for closed fracture with delayed healing (2) Left humeral fracture Current Visit: Yes Status: Acute Assessment and plan: Clinically stable with adequate neurovascular function, distally. Qualifiers: Encounter type: subsequent encounter Humerus Location: greater tuberosity Fracture type: closed Fracture alignment: nondisplaced Fracture healing: with delayed healing Qualified Code(s): S42.255G - Nondisplaced fracture of greater tuberosity of left humerus, subsequent encounter for fracture with delayed healing (3) HTN (hypertension) Current Visit: Yes Status: Chronic Assessment and plan: We will continue current regimen. Qualifiers: Hypertension type: essential hypertension Qualified Code(s): I10 - Essential (primary) hypertension (4) DM2 (diabetes mellitus, type 2) Current Visit: Yes Status: Chronic Assessment and plan: Control was reasonable, especially considering that she has poor oral intake. Qualifiers: Diabetes mellitus termite helper insulin use: without termite helper use Diabetes mellitus complication status: without complication Qualified Code(s): E11.9 - Type 2 diabetes mellitus without complications (5) Hypothyroidism Current Visit: No Status: Chronic Assessment and plan: She is to continue on supplementation. Qualifiers: Hypothyroidism type: acquired Qualified Code(s): E03.9 - Hypothyroidism, unspecified (6) Acute blood loss anemia Current Visit: Yes Status: Acute Assessment and plan: Well-tolerated and apparently stable. (7) Hyponatremia Current Visit: No Status: Acute Assessment and plan: Ongoing and presumed secondary to poor oral intake. We will continue to follow. (8) Aspiration pneumonia due to inhalation of vomitus Current Visit: No Status: Acute Assessment and plan: Clinically stable without signs or symptoms. (9) NSTEMI (non-ST elevated myocardial infarction) Current Visit: Yes Status: Acute Assessment and plan: Seems to be recovering well. She wishes to remain a full code. (10) Gastric ulcer Current Visit: Yes Status: Acute Assessment and plan: Clinically stable and will continue current regimen. 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 Hopefully, she will be able to avoid soon. We will try again tomorrow. This has been discussed with nursing. - Subjective Interval history: Patient is complaining of severe burning from her lower thigh, anteriorly, her right knee, and down into her calf. Her chest discomfort is better since the application of lidocaine patches. She denies other problems. Patient has no complaint of chest discomfort, dyspnea, orthopnea, palpitations, nausea or vomiting, constipation or diarrhea, other changes in bowel habits, difficulty with urination, rash or itching, or other new complaints, except as mentioned above. Review of systems is otherwise negative. I discussed management of patient's care with nursing staff. - Constitutional Vitals: Temp Pulse Resp BP Pulse Ox 98.1 F 77 17 139/76 93 12/02/18 06:29 12/02/18 06:29 12/02/18 06:29 12/02/18 06:29 12/02/18 06:29 Exam: Examination: (Except as mentioned above): General: In no apparent distress. Alert and oriented 3. Nondiaphoretic. Left upper extremity is in a sling. Head: Atraumatic and normocephalic. Respiratory: No use of accessory muscles. Lungs are clear throughout. Normal airflow. Cardiovascular: Irregularly irregular consistent with atrial fibrillation, rate controlled, without murmur appreciated. Abdomen: Bowel sounds are normal. No hepatosplenomegaly mass or tenderness appreciated. Obese and therefore difficult to palpate deeply. Extremities: No cyanosis clubbing or edema. Skin: Warm and non-diaphoretic with no new lesions noted. Internal Medicine: Result - Labs CBC & Chem 7: 12/01/18 04:42 12/01/18 04:42 Consult Discharge Plan - Plan Referrals: Khanh Brooks, INDUSTRIAL PHARMACIST [Primary Care Provider] -
[2018-12-02] MEDS: Insulin LISPRO 300 UNITS/3 ML VIAL SQ SCH ×2 (10:53→17:14)
[2018-12-02] MEDS: Aspirin 81 MG TAB.CHEW PO SCH (10:55)
[2018-12-02] MEDS: Furosemide 20 MG TABLET PO SCH (10:55)
[2018-12-02] MEDS: Lisinopril 20 MG TABLET PO SCH (10:55)
[2018-12-02] MEDS: tiZANidine 4 MG TABLET PO SCH ×4 (10:55→21:06)
[2018-12-02] MEDS: Metoprolol XL (24 HR) Succ 50 MG TAB.ER.24H PO SCH (10:55)
[2018-12-02] MEDS: amLODIPine 5 MG TABLET PO SCH (10:55)
[2018-12-02] MEDS: *HR* Digoxin 0.125 MG TABLET PO SCH (10:55)
[2018-12-02] MEDS: *HR* Enoxaparin 100 MG/ML SYRINGE SQ SCH ×2 (10:56→21:05)
[2018-12-02] MEDS: Nystatin SUSP 5 ML UD.LIQ PO SCH ×4 (10:56→21:06)
[2018-12-02] MEDS: Simethicone 40 MG/0.6 ML MLS PO SCH ×3 (11:00→21:14)
[2018-12-02] MEDS: Nystatin POWDER 30 GM BOTTLE TP SCH ×3 (11:03→21:06)
[2018-12-03] MEDS: *HR* HYDROcodone/Acet 5/325 mg TABLET PO PRN ×3 (06:46→20:34)
[2018-12-03] MEDS: Levothyroxine 25 MCG TABLET PO SCH (06:46)
[2018-12-03] MEDS: Metoprolol XL (24 HR) Succ 50 MG TAB.ER.24H PO SCH (09:12)
[2018-12-03] MEDS: Nystatin SUSP 5 ML UD.LIQ PO SCH ×4 (09:12→20:35)
[2018-12-03] MEDS: tiZANidine 4 MG TABLET PO SCH ×4 (09:12→20:36)
[2018-12-03] MEDS: amLODIPine 5 MG TABLET PO SCH (09:12)
[2018-12-03] MEDS: *HR* Enoxaparin 100 MG/ML SYRINGE SQ SCH ×2 (09:12→20:34)
[2018-12-03] MEDS: Sucralfate 1 GM TABLET PO SCH ×4 (09:12→20:34)
[2018-12-03] MEDS: *HR* Digoxin 0.125 MG TABLET PO SCH (09:12)
[2018-12-03] MEDS: Furosemide 20 MG TABLET PO SCH (09:13)
[2018-12-03] MEDS: Lisinopril 20 MG TABLET PO SCH (09:13)
[2018-12-03] MEDS: Aspirin 81 MG TAB.CHEW PO SCH (09:13)
[2018-12-03] MEDS: Simethicone 40 MG/0.6 ML MLS PO SCH ×3 (09:16→17:21)
[2018-12-03] MEDS: Nystatin POWDER 30 GM BOTTLE TP SCH ×3 (09:16→20:35)
[2018-12-03] MEDS: Insulin LISPRO 300 UNITS/3 ML VIAL SQ SCH ×2 (09:25→17:22)
--- NOTE | 2018-12-03 14:46 | Internal Med Progress Note ---
Date of Encounter: 12/03/18 Time of Encounter: 14:46 - Assessment and plan (1) Closed left hip fracture Current Visit: Yes Status: Acute Assessment and plan: We will continue to try to improve ADLs. She has not been pertussis pain much, with therapy Qualifiers: Encounter type: subsequent encounter Fracture healing: with delayed healing Qualified Code(s): S72.002G - Fracture of unspecified part of neck of left femur, subsequent encounter for closed fracture with delayed healing (2) Left humeral fracture Current Visit: Yes Status: Acute Assessment and plan: Slow to heal. Qualifiers: Encounter type: subsequent encounter Humerus Location: greater tuberosity Fracture type: closed Fracture alignment: nondisplaced Fracture healing: with delayed healing Qualified Code(s): S42.255G - Nondisplaced fracture of greater tuberosity of left humerus, subsequent encounter for fracture with delayed healing (3) HTN (hypertension) Current Visit: Yes Status: Chronic Assessment and plan: We will continue current regimen. Qualifiers: Hypertension type: essential hypertension Qualified Code(s): I10 - Essential (primary) hypertension (4) DM2 (diabetes mellitus, type 2) Current Visit: Yes Status: Chronic Assessment and plan: Nursing has been reluctant to give insulin on sliding scale because of her not eating much, at all. She has had a couple of markedly elevated blood sugars and we will try to tighten control. Qualifiers: Diabetes mellitus shelter insulin use: without meterman use Diabetes mellitus complication status: without complication Qualified Code(s): E11.9 - Type 2 diabetes mellitus without complications (5) Hypothyroidism Current Visit: No Status: Chronic Assessment and plan: We will continue levothyroxine. Qualifiers: Hypothyroidism type: acquired Qualified Code(s): E03.9 - Hypothyroidism, unspecified (6) Acute blood loss anemia Current Visit: Yes Status: Acute Assessment and plan: Apparently stable, will recheck. (7) Hyponatremia Current Visit: No Status: Acute Assessment and plan: Ongoing and I am not sure if this represents intake (suspected) or SIADH, etc. We will recheck in the morning. (8) Aspiration pneumonia due to inhalation of vomitus Current Visit: No Status: Acute Assessment and plan: Apparently resolving? (9) NSTEMI (non-ST elevated myocardial infarction) Current Visit: Yes Status: Acute Assessment and plan: Clinically stable. (10) Gastric ulcer Current Visit: Yes Status: Acute Assessment and plan: No known recurrence but will recheck hemoglobin. 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 - Subjective Interval history: Patient is without much change. She is fatigued and states that she knows she needs to resume therapies tomorrow but it will be "an awful day." She knows that she is losing control of her bowels but has no sensation. Discussed this with nursing and she will have a void trial, and, tomorrow. Patient still complains of pain in her arm, leg, chest. This is somewhat improved in her chest with the lidocaine patches. Patient has no complaint of chest discomfort, dyspnea, orthopnea, palpitations, nausea or vomiting, constipation or diarrhea, other changes in bowel habits, difficulty with urination, rash or itching, or other new complaints, except as mentioned above. Review of systems is otherwise negative. I discussed management of patient's care with nursing staff. - Constitutional Vitals: Temp Pulse Resp BP Pulse Ox 97.7 F 80 16 118/71 97 12/03/18 08:05 12/03/18 08:05 12/03/18 08:05 12/03/18 08:05 12/03/18 08:05 Exam: Examination: (Except as mentioned above): General: In no apparent distress. Alert and oriented 3. Nondiaphoretic. She is markedly pale. Head: Atraumatic and normocephalic. Respiratory: No use of accessory muscles. Lungs are clear throughout. Normal airflow. Left upper extremity is in a sling. Cardiovascular: Irregularly irregular consistent with atrial fibrillation, rate controlled, without murmur appreciated. Abdomen: Bowel sounds are normal. No hepatosplenomegaly mass or tenderness appreciated. Obese and therefore difficult to palpate deeply. Extremities: No cyanosis clubbing or edema. Skin: Warm and non-diaphoretic with no new lesions noted. Internal Medicine: Result - Labs CBC & Chem 7: 12/01/18 04:42 12/01/18 04:42 Consult Discharge Plan - Plan Referrals: Khanh Brooks CEMENT KILN OPERATOR [Primary Care Provider] -
[2018-12-03] MEDS ORDERED: Dextrose Gel 15 GM/37.5 ML TUBE PO PRN ×2 (21:42)
[2018-12-03] MEDS ORDERED: D5% in Water 1,000 ML IVC PRN (21:42)
[2018-12-03] MEDS ORDERED: *HR* Dextrose 50 % in Water (Syg) 50 ML SYRINGE IVP PRN (21:42)
[2018-12-04] MEDS: *HR* HYDROcodone/Acet 5/325 mg TABLET PO PRN ×2 (05:30→17:44)
[2018-12-04] MEDS: Levothyroxine 25 MCG TABLET PO SCH (05:30)
[2018-12-04] MEDS: Sucralfate 1 GM TABLET PO SCH ×4 (08:25→20:18)
[2018-12-04] MEDS: Furosemide 20 MG TABLET PO SCH (08:25)
[2018-12-04] MEDS: Nystatin SUSP 5 ML UD.LIQ PO SCH ×4 (08:25→20:18)
[2018-12-04] MEDS: Aspirin 81 MG TAB.CHEW PO SCH (08:26)
[2018-12-04] MEDS: Lisinopril 20 MG TABLET PO SCH (08:26)
[2018-12-04] MEDS: Metoprolol XL (24 HR) Succ 50 MG TAB.ER.24H PO SCH (08:26)
[2018-12-04] MEDS: *HR* Enoxaparin 100 MG/ML SYRINGE SQ SCH ×2 (08:26→20:18)
[2018-12-04] MEDS: Nystatin POWDER 30 GM BOTTLE TP SCH ×3 (08:26→20:18)
[2018-12-04] MEDS: amLODIPine 5 MG TABLET PO SCH (08:26)
[2018-12-04] MEDS: *HR* Digoxin 0.125 MG TABLET PO SCH (08:26)
[2018-12-04] MEDS: Insulin LISPRO 300 UNITS/3 ML VIAL SQ SCH ×2 (08:28→17:44)
[2018-12-04] MEDS: Simethicone 40 MG/0.6 ML MLS PO SCH ×3 (09:15→20:17)
[2018-12-04] MEDS: tiZANidine 4 MG TABLET PO SCH ×4 (09:15→20:24)
[2018-12-04 10:21] LABS: Basophils % 0.2 %; Eosinophils % 0.6 %; Hematocrit 25.6 % (35.3-44.9); Hemoglobin 8.4 g/dL (11.5-15.4); Immature Granulocytes % 0.6 % (0-4); Lymphocytes # 1.1 K/mcL (0.6-4.6); Mean Corpuscular HGB Conc 32.8 g/dL (31.6-35.5); Mean Corpuscular Hemoglobin 28.4 pg (28.0-33.3); Mean Corpuscular Volume 86.5 fL (83.0-100.0); Mean Platelet Volume 10.2 fL (9.4-12.4); Monocytes # 0.7 K/mcL (0.0-1.3); Monocytes % 10.2 %; Neutrophils # 4.8 K/mcL (1.6-8.9); Platelet Count 427 K/mcL (140-400); Red Blood Count 2.96 M/mcL (3.82-4.97); Segmented Neutrophils % 71.4 %; White Blood Count 6.7 K/mcL (4.3-11.1)
[2018-12-04 10:40] LABS: BUN/Creatinine Ratio 29 (6-26); Blood Urea Nitrogen 27 mg/dL (8-23); Calcium 8.2 mg/dL (8.6-10.3); Carbon Dioxide 23 mEq/L (23-29); Chloride 93 mEq/L (98-107); Glucose 252 mg/dL (70-105); Magnesium 1.7 mg/dL (1.6-2.6); Osmolality,Calculated 274 (280-300); Potassium 3.3 mEq/L (3.5-5.1); Sodium 125 mEq/L (136-145); eGFR For African Americans > 60 (> 60); eGFR For Non-African Americans 57 (> 60)
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
[2018-12-04] MEDS ORDERED: Furosemide 20 MG TABLET PO ONE (19:00)
[2018-12-05] MEDS: *HR* HYDROcodone/Acet 5/325 mg TABLET PO PRN (02:44)
[2018-12-05] MEDS: Levothyroxine 25 MCG TABLET PO SCH (05:26)
[2018-12-05 06:16] LABS: Basophils % 0.2 %; Eosinophils # 0.1 K/mcL (0.0-0.6); Eosinophils % 1.4 %; Hematocrit 25.1 % (35.3-44.9); Hemoglobin 8.2 g/dL (11.5-15.4); Immature Granulocytes % 0.5 % (0-4); Lymphocytes # 1.7 K/mcL (0.6-4.6); Lymphocytes % 29.5 %; Mean Corpuscular HGB Conc 32.7 g/dL (31.6-35.5); Mean Corpuscular Hemoglobin 28.8 pg (28.0-33.3); Mean Corpuscular Volume 88.1 fL (83.0-100.0); Monocytes # 0.6 K/mcL (0.0-1.3); Monocytes % 10.8 %; Neutrophils # 3.3 K/mcL (1.6-8.9); Platelet Count 403 K/mcL (140-400); Red Blood Count 2.85 M/mcL (3.82-4.97); Red Cell Distribution Width 17.1 % (11.5-14.5); Segmented Neutrophils % 57.6 %; White Blood Count 5.8 K/mcL (4.3-11.1)
[2018-12-05 06:21] LABS: INR 1.2
[2018-12-05] MEDS ORDERED: 0.9 % Sodium Chloride 1,000 ML IVC SCH (06:30)
[2018-12-05 07:49] VITALS: BP 164/73
[2018-12-05] MEDS ORDERED: Furosemide 40 MG TABLET PO SCH (09:00)
[2018-12-05] MEDS ORDERED: Cholecalciferol (D-3) 1,000 UNIT (25MCG) TABLET PO SCH (09:00)
[2018-12-05] MEDS: Aspirin 81 MG TAB.CHEW PO SCH (09:05)
[2018-12-05] MEDS: amLODIPine 5 MG TABLET PO SCH (09:05)
[2018-12-05] MEDS: tiZANidine 4 MG TABLET PO SCH (09:05)
[2018-12-05] MEDS: Metoprolol XL (24 HR) Succ 50 MG TAB.ER.24H PO SCH (09:05)
[2018-12-05] MEDS: Lisinopril 20 MG TABLET PO SCH (09:05)
[2018-12-05] MEDS: *HR* Digoxin 0.125 MG TABLET PO SCH (09:06)
[2018-12-05] MEDS: Sucralfate 1 GM TABLET PO SCH (09:06)
[2018-12-05] MEDS: Nystatin SUSP 5 ML UD.LIQ PO SCH (09:06)
[2018-12-05] MEDS: Insulin LISPRO 300 UNITS/3 ML VIAL SQ SCH (09:07)
[2018-12-05] MEDS: Simethicone 40 MG/0.6 ML MLS PO SCH (09:08)
[2018-12-05] MEDS: Nystatin POWDER 30 GM BOTTLE TP SCH (09:08)
--- NOTE | 2018-12-05 10:49 | Discharge Summary ---
Orders not resulted at time of discharge: Pending orders 12/05/18 05:51 Occult Blood,Stool [BF] Stat Date of Encounter: 12/05/18 Time of Encounter: 10:47 - Discharge Diagnosis (1) Closed left hip fracture Priority: Primary Status: Acute Comments: pain controlled, follow up with ortho as scheduled. Qualifiers: Encounter type: subsequent encounter Fracture healing: with delayed healing Qualified Code(s): S72.002G - Fracture of unspecified part of neck of left femur, subsequent encounter for closed fracture with delayed healing (2) Left humeral fracture Priority: Primary Status: Acute Qualifiers: Encounter type: subsequent encounter Humerus Location: greater tuberosity Fracture type: closed Fracture alignment: nondisplaced Fracture healing: with delayed healing Qualified Code(s): S42.255G - Nondisplaced fracture of greater tuberosity of left humerus, subsequent encounter for fracture with delayed healing (3) HTN (hypertension) Priority: Secondary Status: Chronic Comments: controlled with current meds monitor BP Qualifiers: Hypertension type: essential hypertension Qualified Code(s): I10 - Essential (primary) hypertension (4) DM2 (diabetes mellitus, type 2) Priority: Secondary Status: Chronic Comments: Controlled with current medication. Monitor fingerstick blood sugar. Qualifiers: Diabetes mellitus skiff operator insulin use: without chcf use Diabetes mellitus complication status: without complication Qualified Code(s): E11.9 - Type 2 diabetes mellitus without complications (5) Acute blood loss anemia Priority: Primary Status: Acute Comments: Hemoglobin 8.2. Did have blood in stool this morning. Recent History of bleeding ulcer. Hospital course: Ms. Vasquez is a 87 year old female transferring to [facility] in [place]. Has recent history of bleeding ulcers. Had blood in stool this morning. Hemoglobin 8.2. States she is feeling very fatigued. Has been unable to participate with therapy and several days due to fatigue. Was recently cardiac arrest prior to this admission. Denies shortness of breath, chest pain, fever, chills, nausea vomiting or diarrhea at this time. Has been having frequent incontinent stool episodes. Has fully catheter in. Bilateral lower extremities have become more edematous. Lasix given. Ms. Vasquez is a 87 year old female with recent 11/18/18 NSTEMI and V FIB cardio pulmonary arrest, acute respiratory failure and intubation, transfer to [facility]. She was extubated and weaned to room air. Pt finished course of Zosyn. Cardiology note of Dr Jairo Rose on 11/21/18 from [facility] states pt had NSTEMI but refused cardiac cath, and that pt is not a candidate for cardiac rehab. Pt was on amiodarone drip then, and is not currently on po amiodarone as cardiology advised to use beta sera. She did have cardiac echo that showed she was 60% EF. She has anemia, and current hb is over 8. Her last blood transfusion was 2 units given Nov 19. She has hx of GI bleed on previous [facility] admission that was cauterized. She was previously at [place] for rehab after fall and multiple fractures. She had Left HIP and Left Humerus fracture. She had nailing of left hip. She was in rehab here at [facility] when she had the cardiac arrest. She is not to weight bear and she is a 3 person assist. She has new Right Arm DVT. She was started on Lovenox therapeutic for this on Nov 24. She had an IJ at [facility] that was removed. She has urinary retention. She has hx of DM but is not eating much. She is hard of hearing. She is alert and oriented and fatigued. Discharge discussed with: patient, family, nurse, social work - Time Spent with Patient Total time spent providing and/or coordinating discharge services: Time spent: Less than 30 minutes - Discharge Medications Prescriptions: No Action Enoxaparin [Lovenox] 90 mg SQ BID syringe Aspirin 81 mg PO DAILY tab.chew Sucralfate [Carafate] 1 gm PO QIDAC tablet amLODIPine [Norvasc] 10 mg PO DAILY tablet Pantoprazole Sodium 40 mg PO DAILY 30 Days #30 tablet. Furosemide [Lasix] 20 mg PO DAILY 30 Days #30 tablet Potassium Chloride 8 meq PO DAILY 30 Days #30 capsule.er HYDROcodone/Acet 5/325 mg [[place] 5-325 mg] 1 tab PO Q4H PRN 3 Days #12 tablet PRN Reason: Moderate Pain Metoprolol Succinate [Toprol Xl] 50 mg PO DAILY Glimepiride [Amaryl] 4 mg PO DAILY Ramipril [Altace] 10 mg PO DAILY Atorvastatin [Lipitor] 40 mg PO HS Levothyroxine [Synthroid] 25 mcg PO 0630 Home Medications: Atorvastatin [Lipitor] 40 mg PO HS 11/13/18 [History] Glimepiride [Amaryl] 4 mg PO DAILY 11/13/18 [History] Levothyroxine [Synthroid] 25 mcg PO 0630 11/13/18 [History] Metoprolol Succinate [Toprol Xl] 50 mg PO DAILY 11/13/18 [History] Ramipril [Altace] 10 mg PO DAILY 11/13/18 [History] Aspirin 81 mg PO DAILY tab.chew 11/24/18 [Rx] Enoxaparin [Lovenox] 90 mg SQ BID syringe 11/24/18 [Rx] Furosemide [Lasix] 20 mg PO DAILY 30 Days #30 tablet 11/24/18 [Rx] HYDROcodone/Acet 5/325 mg [[place] 5-325 mg] 1 tab PO Q4H PRN 3 Days #12 tablet 11/24/18 [Rx] Pantoprazole Sodium 40 mg PO DAILY 30 Days #30 tablet.dr 11/24/18 [Rx] Potassium Chloride 8 meq PO DAILY 30 Days #30 capsule.er 11/24/18 [Rx] Sucralfate [Carafate] 1 gm PO QIDAC tablet 11/24/18 [Rx] amLODIPine [Norvasc] 10 mg PO DAILY tablet 11/24/18 [Rx] Allergies/Adverse Reactions: Allergy/AdvReac Type Severity Reaction Status Date / Time celecoxib [From Celebrex] Allergy Hives Verified 11/14/18 10:49 codeine Allergy Hives Verified 11/14/18 10:49 Date of admission: 11/24/18 18:41 Primary care physician: Khanh Brooks CNP Consults: 11/24/18 22:57 Consult to Occupational Therapy [CONS] Routine Comment: left hip nailing Reason for Consult: nwb, 2-3 max assist, conservative treatment d/t cardiac problems and recent mi. Does patient have active BEDREST order?: No Is patient medically & hemodynamically stable?: Yes Patient assessed for mobility or mobilized this visit?: No Consult to Physical Therapy [CONS] Routine Comment: left hip nailing Reason for Consult: nwb, 2-3 max assist, conservative treatment d/t cardiac problems and recent mi. Does patient have active BEDREST order?: No Is patient medically & hemodynamically stable?: Yes Patient assessed for mobility or mobilized this visit?: No Consult to Recreational Therapy [CONS] Routine Comment: Consult to Sheet Metal Helper [CONS] Routine Reason for SW Consult: d/c planning 11/24/18 23:00 Consult to Speech Therapy [CONS] Routine Comment: Evaluate, develop and implement POC Reason for Consult: altered diet from previous facility, coughing when eating, hx of aspiration pna from vomiting during intubation. Call Completed: No 11/29/18 08:21 Consult to Psychology [CONS] Routine Consulting Provider: Libra Colindres Reason for Consult: Possible depression; adjustment disorder Call Completed: No 11/29/18 14:08 Consult to Recreational Therapy [CONS] Routine Comment: 12/03/18 15:36 Consult to Wound Care [CONS] Routine Reason for Consult: Please evaluate coccyx and buttocks area for pressure ulcers due to inactivity. We have been using barrier cream due to incontinence of bowel. Call Completed: Yes Discharging clinician: Diego Mendoza Anticipated date of discharge: 12/05/18 - Constitutional Vitals: Temp Pulse Resp BP Pulse Ox 98.8 F 86 16 164/73 96 12/05/18 07:48 12/05/18 07:48 12/05/18 07:48 12/05/18 07:48 12/05/18 07:48 General appearance: Present: A&O X 3, pleasant, no acute distress, answers questions appropriately - Head Head exam: Present: atraumatic, normocephalic - Eye Eye exam: Present: PERRL, conjuntiva pink, sclera anicteric Pupils: Present: PERRL - Neck Neck exam general surgery: Present: supple, trachea midline. Absent: lymphadenopathy - Respiratory Respiratory exam: Present: CTAB. Absent: accessory muscle use, rales, rhonchi, wheezes - Cardiovascular Cardiovascular exam: Present: irregular rhythm, +S1, +S2. Absent: diastolic murmur, gallop, rubs, systolic murmur - GI/Abdominal GI/Abdominal exam: Present: normal bowel sounds, soft, no peritoneal signs. Absent: distended, tenderness - Extremities Exam Extremities exam: Present: warm, radial pulses palpable and symmetrical. Absent: calf tenderness, cyanotic, pedal edema Additional comments: 2+ pitting edema to bilateral lower extremities. - Neurological Exam Neurological exam: Present: CN II-XII intact, oriented X3, no focal deficits. Absent: pronater drift, facial droop, speech deficit - Skin Skin exam: Present: dry, intact - Patient Status Disposition: Transfer Short-Term Hosp Condition: Fair Functional capacity at discharge: wheelchair bound Overall status at discharge: patient is not back to baseline - Discharge Instructions Follow Up With: Khanh Brooks, PIE FILLER [Primary Care Provider] - - Diet and Activity Activity: as per physical therapy Diet: diabetic diet
== END 2018-12-05 11:20 | disposition short-term general hospital (02) | DRG 559 ==
LOC: INPGRE 18:41

== ENCOUNTER 2019-02-22 13:12 | Inpatient (IN) ==
[2019-02-22] MEDS ORDERED: 0.9 % Sodium Chloride 1,000 ML IVC ONE (13:55)
[2019-02-22] MEDS ORDERED: Isovue-370 500 ML BOTTLE IVP ONE (13:55)
[2019-02-22 14:41] LABS: Basophils % 0.3 %; Eosinophils % 0.1 %; Hematocrit 37.1 % (35.3-44.9); Hemoglobin 12.7 g/dL (11.5-15.4); Immature Granulocytes % 0.4 % (0-4); Lymphocytes # 2.3 K/mcL (0.6-4.6); Lymphocytes % 21.1 %; Mean Corpuscular HGB Conc 34.2 g/dL (31.6-35.5); Mean Corpuscular Volume 87.7 fL (83.0-100.0); Monocytes # 0.7 K/mcL (0.0-1.3); Monocytes % 6.2 %; Neutrophils # 7.8 K/mcL (1.6-8.9); Platelet Count 280 K/mcL (140-400); Red Blood Count 4.23 M/mcL (3.82-4.97); Red Cell Distribution Width 14.2 % (11.5-14.5); Segmented Neutrophils % 71.9 %; White Blood Count 10.8 K/mcL (4.3-11.1)
[2019-02-22 14:46] LABS: Prothrombin Time 34.2 Seconds (9.4-12.1)
[2019-02-22 14:49] LABS: Activated Partial Thrombo Time 42.6 Seconds (26.0-36.0)
[2019-02-22 15:02] LABS: Troponin I < 0.03 ng/mL (< 0.04)
[2019-02-22 15:07] LABS: Bilirubin,Urine Negative (Negative); Blood,Urine Trace-intact (Negative); Clarity,Urine Clear (Clear); Color,Urine Yellow (Yellow); Glucose,Urine (UA) Normal (Normal); Ketones,Urine Negative (Negative); Leukocyte Esterase,Urine Small (Negative); Nitrite,Urine Positive (Negative); PH,Urine 7.5 pH Units (5.0-8.0); Protein,Urine Negative (Neg-Trace); Specific Gravity,Urine 1.015 (1.010-1.025); Urobilinogen,Urine Normal (Normal)
[2019-02-22 15:11] LABS: Bacteria,Urine Few per hpf (None-Few); RBC,Urine 0-3 per hpf (0-3)
[2019-02-22 15:25] LABS: VBG Creatinine 0.48 mg/dL (0.57-1.11)
[2019-02-22 17:19] LABS: Alanine Aminotransferase 7 Units/L (7-52); Albumin 2.8 g/dL (3.5-5.7); Alkaline Phosphatase 90 Units/L (34-104); Amylase 26 Units/L (29-103); Aspartate Amino Transferase 14 Units/L (13-39); Bilirubin,Direct 0.2 mg/dL (0.0-0.2); Bilirubin,Indirect 0.5 mg/dL (0.0-1.0); Bilirubin,Total 0.7 mg/dL (0.3-1.0); Globulin 2.8 g/dL (2.4-3.5); Lipase 35 Units/L (11-82); Total Protein 5.6 g/dL (6.4-8.9)
[2019-02-22] MEDS ORDERED: MOM Conc 10 ML UD.LIQ PO PRN (18:24)
[2019-02-22] MEDS ORDERED: *HR* Warfarin 4 MG TABLET PO SCH (18:24)
[2019-02-22] MEDS ORDERED: Ondansetron ODT 4 MG TAB.RAPDIS SL PRN (18:24)
[2019-02-22] MEDS ORDERED: Naloxone 0.4 MG/ML INJ IVP PRN (18:24)
[2019-02-22] MEDS ORDERED: Furosemide 20 MG TABLET PO PRN (18:24)
[2019-02-22] MEDS ORDERED: *HR* OxyCODONE Immed Rel 5 MG TABLET PO PRN (18:25)
[2019-02-22] MEDS: D5% in 0.45% NACL 1,000 ML IVC SCH (18:52)
[2019-02-22] MEDS ORDERED: Warfarin perPT PO PRN (19:24)
[2019-02-22] MEDS ORDERED: *HR* Warfarin 2.5 MG TABLET PO ONE (19:25)
[2019-02-22] MEDS: cephALEXin 500 MG CAPSULE PO SCH (20:45)
[2019-02-23] MEDS: Levothyroxine 25 MCG TABLET PO SCH (04:34)
[2019-02-23] MEDS: *HR* Metformin 500 MG TABLET PO SCH (04:41)
[2019-02-23] MEDS ORDERED: *HR* Metformin 500 MG TABLET PO SCH (08:00)
[2019-02-23] MEDS ORDERED: BLOOD SUGAR DIAGNOSTIC MC SCH (09:00)
[2019-02-23] MEDS ORDERED: LANCETS MC SCH (09:00)
[2019-02-23] MEDS ORDERED: ALCOHOL ANTISEPTIC PADS TP SCH (09:00)
[2019-02-23] MEDS: Metoprolol XL (24 HR) Succ 50 MG TAB.ER.24H PO SCH (09:12)
[2019-02-23] MEDS: Potassium Chloride Elixir 20 MEQ/15 ML UDC PO SCH ×2 (09:12→20:11)
[2019-02-23] MEDS: amLODIPine 5 MG TABLET PO SCH (09:12)
[2019-02-23] MEDS: Lisinopril 20 MG TABLET PO SCH (09:12)
[2019-02-23] MEDS: cephALEXin 500 MG CAPSULE PO SCH ×3 (09:12→20:11)
[2019-02-23 09:40] LABS: Basophils % 0.4 %; Eosinophils # 0.1 K/mcL (0.0-0.6); Eosinophils % 0.9 %; Hematocrit 34.5 % (35.3-44.9); Hemoglobin 11.8 g/dL (11.5-15.4); Immature Granulocytes % 0.4 % (0-4); Lymphocytes # 2.7 K/mcL (0.6-4.6); Lymphocytes % 33.9 %; Mean Corpuscular HGB Conc 34.2 g/dL (31.6-35.5); Mean Corpuscular Hemoglobin 29.8 pg (28.0-33.3); Mean Corpuscular Volume 87.1 fL (83.0-100.0); Mean Platelet Volume 10.6 fL (9.4-12.4); Monocytes # 0.7 K/mcL (0.0-1.3); Monocytes % 8.9 %; Neutrophils # 4.4 K/mcL (1.6-8.9); Platelet Count 284 K/mcL (140-400); Red Blood Count 3.96 M/mcL (3.82-4.97); Red Cell Distribution Width 14.3 % (11.5-14.5); Segmented Neutrophils % 55.5 %; White Blood Count 7.8 K/mcL (4.3-11.1)
[2019-02-23 09:41] LABS: INR 3.6; Prothrombin Time 40.6 Seconds (9.4-12.1)
[2019-02-23] MEDS ORDERED: *HR* Warfarin 5 MG TABLET PO SCH (18:00)
[2019-02-23] MEDS: D5% in 0.45% NACL 1,000 ML IVC SCH (19:00)
[2019-02-23] MEDS: Acetaminophen 325 MG TABLET PO PRN (20:11)
[2019-02-24] MEDS: Levothyroxine 25 MCG TABLET PO SCH (04:41)
[2019-02-24 06:14] LABS: INR 4.1
[2019-02-24 06:21] LABS: Prothrombin Time 46.7 Seconds (9.4-12.1)
[2019-02-24 06:27] LABS: BUN/Creatinine Ratio 13 (6-26); Blood Urea Nitrogen 7 mg/dL (8-23); Calcium 7.8 mg/dL (8.6-10.3); Carbon Dioxide 24 mEq/L (23-29); Chloride 96 mEq/L (98-107); Glucose 219 mg/dL (70-105); Osmolality,Calculated 269 (280-300); Potassium 3.2 mEq/L (3.5-5.1); Sodium 127 mEq/L (136-145); eGFR For African Americans > 60 (> 60); eGFR For Non-African Americans > 60 (> 60)
[2019-02-24] MEDS: cephALEXin 500 MG CAPSULE PO SCH ×3 (09:07→22:08)
[2019-02-24] MEDS: Metoprolol XL (24 HR) Succ 50 MG TAB.ER.24H PO SCH (09:07)
[2019-02-24] MEDS: Potassium Chloride Elixir 20 MEQ/15 ML UDC PO SCH ×2 (09:07→22:08)
[2019-02-24] MEDS: amLODIPine 5 MG TABLET PO SCH (09:07)
[2019-02-24] MEDS: Lisinopril 20 MG TABLET PO SCH (09:07)
[2019-02-24] MEDS: Acetaminophen 325 MG TABLET PO PRN (10:52)
[2019-02-24] MEDS: 0.9 % Sodium Chloride w KCl 40 MEQ/1,000 ML MLS IVC SCH (12:15)
[2019-02-24] MEDS: Sucralfate 1 GM TABLET PO SCH (16:24)
[2019-02-24] MEDS: Promethazine Syrup 6.25 MG/5 ML PO SCH (16:24)
[2019-02-24] MEDS: Nystatin SUSP 5 ML UD.LIQ PO SCH ×2 (16:24→22:09)
[2019-02-24 17:53] LABS: BUN/Creatinine Ratio 19 (6-26); Blood Urea Nitrogen 10 mg/dL (8-23); Calcium 7.7 mg/dL (8.6-10.3); Carbon Dioxide 23 mEq/L (23-29); Chloride 95 mEq/L (98-107); Glucose 326 mg/dL (70-105); Osmolality,Calculated 272 (280-300); Potassium 3.7 mEq/L (3.5-5.1); Sodium 125 mEq/L (136-145); eGFR For African Americans > 60 (> 60); eGFR For Non-African Americans > 60 (> 60)
[2019-02-24] MEDS: Mirtazapine 15 MG TABLET PO SCH (22:08)
[2019-02-25] MEDS: 0.9 % Sodium Chloride w KCl 40 MEQ/1,000 ML MLS IVC SCH ×2 (01:15→13:30)
[2019-02-25] MEDS: Promethazine Syrup 6.25 MG/5 ML PO SCH ×4 (01:45→16:41)
[2019-02-25 05:21] LABS: INR 3.1; Prothrombin Time 35.6 Seconds (9.4-12.1)
[2019-02-25 05:37] LABS: BUN/Creatinine Ratio 18 (6-26); Blood Urea Nitrogen 8 mg/dL (8-23); Calcium 7.5 mg/dL (8.6-10.3); Carbon Dioxide 24 mEq/L (23-29); Chloride 100 mEq/L (98-107); Glucose 174 mg/dL (70-105); Osmolality,Calculated 269 (280-300); Potassium 4.2 mEq/L (3.5-5.1); Sodium 128 mEq/L (136-145); eGFR For African Americans > 60 (> 60); eGFR For Non-African Americans > 60 (> 60)
[2019-02-25] MEDS: Levothyroxine 25 MCG TABLET PO SCH (05:50)
[2019-02-25] MEDS: Sucralfate 1 GM TABLET PO SCH ×2 (05:50→16:41)
[2019-02-25] MEDS ORDERED: Lisinopril 20 MG TABLET PO SCH (09:00)
[2019-02-25] MEDS ORDERED: amLODIPine 5 MG TABLET PO SCH (09:00)
[2019-02-25] MEDS: cephALEXin 500 MG CAPSULE PO SCH ×3 (09:22→22:13)
[2019-02-25] MEDS: Potassium Chloride Elixir 20 MEQ/15 ML UDC PO SCH ×2 (09:22→22:13)
[2019-02-25] MEDS: Metoprolol XL (24 HR) Succ 50 MG TAB.ER.24H PO SCH (09:22)
[2019-02-25] MEDS: Nystatin SUSP 5 ML UD.LIQ PO SCH ×4 (09:22→22:13)
[2019-02-25] MEDS ORDERED: D5% in Water 1,000 ML IVC PRN (10:16)
[2019-02-25] MEDS ORDERED: *HR* Dextrose 50 % in Water (Syg) 50 ML SYRINGE IVP PRN (10:16)
[2019-02-25] MEDS ORDERED: Dextrose Gel 15 GM/37.5 ML TUBE PO PRN ×2 (10:16)
[2019-02-25] MEDS: Insulin LISPRO 300 UNITS/3 ML VIAL SQ SCH ×3 (13:00→22:14)
[2019-02-25] MEDS: 0.9 % Sodium Chloride 1,000 ML IVC SCH (13:00)
[2019-02-25] MEDS ORDERED: *HR* Warfarin 2 MG TABLET PO ONE (18:00)
[2019-02-25] MEDS: Mirtazapine 15 MG TABLET PO SCH (22:13)
[2019-02-26] MEDS: Promethazine Syrup 6.25 MG/5 ML PO SCH ×5 (01:15→16:38)
[2019-02-26 05:54] LABS: INR 2.4; Prothrombin Time 27.7 Seconds (9.4-12.1)
[2019-02-26] MEDS: 0.9 % Sodium Chloride 1,000 ML IVC SCH ×3 (06:03→19:25)
[2019-02-26] MEDS: Sucralfate 1 GM TABLET PO SCH ×2 (06:04→16:35)
[2019-02-26] MEDS: Levothyroxine 25 MCG TABLET PO SCH (06:04)
[2019-02-26] MEDS: Potassium Chloride Elixir 20 MEQ/15 ML UDC PO SCH ×2 (07:47→22:06)
[2019-02-26] MEDS: Lisinopril 20 MG TABLET PO SCH (07:47)
[2019-02-26] MEDS: cephALEXin 500 MG CAPSULE PO SCH ×3 (07:47→22:07)
[2019-02-26] MEDS: Metoprolol XL (24 HR) Succ 50 MG TAB.ER.24H PO SCH (07:47)
[2019-02-26] MEDS: amLODIPine 5 MG TABLET PO SCH (07:47)
[2019-02-26] MEDS: Nystatin SUSP 5 ML UD.LIQ PO SCH ×4 (07:48→22:07)
[2019-02-26] MEDS: Insulin LISPRO 300 UNITS/3 ML VIAL SQ SCH ×4 (07:48→22:08)
[2019-02-26] MEDS ORDERED: DiphenhydraMINE CREAM 28.4 GM TUBE TP PRN (16:22)
[2019-02-26] MEDS ORDERED: *HR* Warfarin 4 MG TABLET PO ONE (18:00)
[2019-02-26] MEDS: Mirtazapine 15 MG TABLET PO SCH (22:07)
[2019-02-27] MEDS: Promethazine Syrup 6.25 MG/5 ML PO SCH ×6 (00:02→21:33)
[2019-02-27] MEDS: 0.9 % Sodium Chloride 1,000 ML IVC SCH ×2 (05:15→20:44)
[2019-02-27] MEDS: Levothyroxine 25 MCG TABLET PO SCH (05:16)
[2019-02-27] MEDS: Sucralfate 1 GM TABLET PO SCH ×2 (05:17→17:37)
[2019-02-27 06:09] LABS: Basophils % 0.4 %; Eosinophils # 0.3 K/mcL (0.0-0.6); Eosinophils % 4.1 %; Hematocrit 28.1 % (35.3-44.9); Hemoglobin 9.4 g/dL (11.5-15.4); Immature Granulocytes % 0.7 % (0-4); Lymphocytes # 2.6 K/mcL (0.6-4.6); Lymphocytes % 35.6 %; Mean Corpuscular HGB Conc 33.5 g/dL (31.6-35.5); Mean Corpuscular Hemoglobin 29.7 pg (28.0-33.3); Mean Corpuscular Volume 88.9 fL (83.0-100.0); Monocytes # 0.8 K/mcL (0.0-1.3); Monocytes % 10.8 %; Neutrophils # 3.5 K/mcL (1.6-8.9); Platelet Count 252 K/mcL (140-400); Red Blood Count 3.16 M/mcL (3.82-4.97); Red Cell Distribution Width 14.2 % (11.5-14.5); Segmented Neutrophils % 48.4 %; White Blood Count 7.3 K/mcL (4.3-11.1)
[2019-02-27 06:11] LABS: Prothrombin Time 22.3 Seconds (9.4-12.1)
[2019-02-27 06:21] LABS: BUN/Creatinine Ratio 19 (6-26); Blood Urea Nitrogen 10 mg/dL (8-23); Calcium 7.8 mg/dL (8.6-10.3); Carbon Dioxide 23 mEq/L (23-29); Chloride 101 mEq/L (98-107); Glucose 201 mg/dL (70-105); Osmolality,Calculated 273 (280-300); Potassium 4.2 mEq/L (3.5-5.1); Sodium 129 mEq/L (136-145); eGFR For African Americans > 60 (> 60); eGFR For Non-African Americans > 60 (> 60)
[2019-02-27] MEDS: cephALEXin 500 MG CAPSULE PO SCH ×3 (08:46→20:43)
[2019-02-27] MEDS: Metoprolol XL (24 HR) Succ 50 MG TAB.ER.24H PO SCH (08:46)
[2019-02-27] MEDS: Lisinopril 20 MG TABLET PO SCH (08:46)
[2019-02-27] MEDS: Nystatin SUSP 5 ML UD.LIQ PO SCH ×4 (08:46→20:42)
[2019-02-27] MEDS: amLODIPine 5 MG TABLET PO SCH (08:46)
[2019-02-27] MEDS: Potassium Chloride Elixir 20 MEQ/15 ML UDC PO SCH ×2 (08:47→20:42)
[2019-02-27] MEDS: Insulin LISPRO 300 UNITS/3 ML VIAL SQ SCH ×4 (08:49→20:44)
[2019-02-27 16:26] LABS: BUN/Creatinine Ratio 22 (6-26); Blood Urea Nitrogen 13 mg/dL (8-23); Carbon Dioxide 24 mEq/L (23-29); Chloride 97 mEq/L (98-107); Glucose 270 mg/dL (70-105); Magnesium 1.2 mg/dL (1.6-2.6); Osmolality,Calculated 272 (280-300); Potassium 4.1 mEq/L (3.5-5.1); Sodium 126 mEq/L (136-145); eGFR For African Americans > 60 (> 60); eGFR For Non-African Americans > 60 (> 60)
[2019-02-27] MEDS: Ascorbic Acid 500 MG TABLET PO SCH ×2 (17:41→20:43)
[2019-02-27] MEDS: Nystatin Ointment 15 GM TUBE TP SCH ×2 (17:42→20:45)
[2019-02-27] MEDS: Lactobacillus 1 EACH CAP.SPRINK PO SCH ×2 (17:42→20:43)
[2019-02-27] MEDS: Multivit/Ca/Min/Fe/FA 1 TAB TABLET PO SCH (17:42)
[2019-02-27] MEDS ORDERED: *HR* Warfarin 5 MG TABLET PO ONE (18:00)
[2019-02-27] MEDS: Magnesium Oxide 400 MG TABLET PO SCH (20:43)
[2019-02-27] MEDS: Mirtazapine 15 MG TABLET PO SCH (20:45)
[2019-02-27] MEDS ORDERED: Insulin DETEMIR 100 UNIT/ML X5UNITS SQ SCH (21:00)
[2019-02-28] MEDS: Sucralfate 1 GM TABLET PO SCH (04:46)
[2019-02-28] MEDS: Levothyroxine 25 MCG TABLET PO SCH (04:46)
[2019-02-28 05:57] LABS: Hemoglobin 9.2 g/dL (11.5-15.4); Mean Corpuscular HGB Conc 32.9 g/dL (31.6-35.5); Mean Corpuscular Hemoglobin 29.3 pg (28.0-33.3); Mean Corpuscular Volume 89.2 fL (83.0-100.0); Mean Platelet Volume 10.1 fL (9.4-12.4); Platelet Count 259 K/mcL (140-400); Red Blood Count 3.14 M/mcL (3.82-4.97); Red Cell Distribution Width 14.6 % (11.5-14.5); White Blood Count 8.8 K/mcL (4.3-11.1)
[2019-02-28 06:04] LABS: INR 1.7; Prothrombin Time 19.2 Seconds (9.4-12.1)
[2019-02-28 06:16] LABS: BUN/Creatinine Ratio 19 (6-26); Blood Urea Nitrogen 12 mg/dL (8-23); Calcium 7.8 mg/dL (8.6-10.3); Carbon Dioxide 25 mEq/L (23-29); Chloride 100 mEq/L (98-107); Glucose 152 mg/dL (70-105); Magnesium 1.2 mg/dL (1.6-2.6); Osmolality,Calculated 271 (280-300); Potassium 3.9 mEq/L (3.5-5.1); Sodium 129 mEq/L (136-145); eGFR For African Americans > 60 (> 60); eGFR For Non-African Americans > 60 (> 60)
[2019-02-28] MEDS: Insulin LISPRO 300 UNITS/3 ML VIAL SQ SCH ×2 (07:55→12:32)
[2019-02-28] MEDS: Magnesium Oxide 400 MG TABLET PO SCH (08:54)
[2019-02-28] MEDS: Nystatin SUSP 5 ML UD.LIQ PO SCH ×2 (08:54→12:33)
[2019-02-28] MEDS: Potassium Chloride Elixir 20 MEQ/15 ML UDC PO SCH (08:54)
[2019-02-28] MEDS: Multivit/Ca/Min/Fe/FA 1 TAB TABLET PO SCH (08:54)
[2019-02-28] MEDS: cephALEXin 500 MG CAPSULE PO SCH ×2 (08:54→15:18)
[2019-02-28] MEDS: Lactobacillus 1 EACH CAP.SPRINK PO SCH (08:55)
[2019-02-28] MEDS: Metoprolol XL (24 HR) Succ 50 MG TAB.ER.24H PO SCH (08:55)
[2019-02-28] MEDS: Lisinopril 20 MG TABLET PO SCH (08:55)
[2019-02-28] MEDS: Ascorbic Acid 500 MG TABLET PO SCH (08:55)
[2019-02-28] MEDS: 0.9 % Sodium Chloride 1,000 ML IVC SCH (09:04)
[2019-02-28 09:31] LABS: % Iron Saturation 20 % (15-50); Iron 36 mcg/dL (50-170); Transferrin 126 mg/dL (203-362)
[2019-02-28] MEDS: Nystatin Ointment 15 GM TUBE TP SCH (11:27)
[2019-02-28] MEDS: Promethazine Syrup 6.25 MG/5 ML PO SCH (12:25)
[2019-02-28] MEDS: Acetaminophen 325 MG TABLET PO PRN (15:18)
[2019-02-28 15:57] VITALS: BP 134/72
[2019-02-28] MEDS ORDERED: *HR* Warfarin 3 MG TABLET PO ONE (18:00)
== END 2019-02-28 15:26 | disposition home health service (06) | DRG 389 ==
LOC: EMEROOGRE 13:12 → INPGRE 13:12
PROVIDERS: ADMIT Internal Medicine; ATTEND Internal Medicine